=== PATIENT | male | born 1960 | race American Indian/Alaskan Native ===

== ENCOUNTER 2021-10-30 07:14 | Inpatient (IN) | payer OTHER ==
[2021-10-30] MEDS ORDERED: SODIUM CHLORIDE 0.9% 1000 ML 2,000 ML IV ONE (10:46)
--- NOTE | 2021-10-30 11:06 | Emergency Department Report ---
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 Patient stated that he uses insulin but he does not know what doses or what type of insulin he uses. At the time my evaluation patient denies any discomfort. Patient stated that he is supposed to go to [facility] but he was dropped off here. Patient denies fever chill night sweat dizziness blurred vision lightheadedness headache tinnitus ear pain runny nose sore throat loss of taste loss smell chest pain palpitation short of breath cough abdominal pain nausea vomiting diarrhea constipation joint pain muscle pain new rash and heat or cold intolerance. Severity scale (0 -10): 0 - Related Data Allergies Allergy/AdvReac Type Severity Reaction Status Date / Time No Known Allergies Allergy Verified 10/30/21 07:33 ED Review of Systems ROS: Stated complaint: HAS NOT TAKEN DIABETIC MEDS X 4DAYS/HBP Other details as noted in HPI Comment: All other systems reviewed and negative Constitutional: no symptoms reported Eyes: as per HPI ENT: as per HPI Respiratory: no symptoms reported Cardiovascular: as per HPI Endocrine: no symptoms reported Gastrointestinal: as per HPI Genitourinary: as per HPI Musculoskeletal: as per HPI Skin: as per HPI Neurological: as per HPI Psychiatric: as per HPI Hematological/Lymphatic: as per HPI ED Past Medical Hx - Past Medical History Previous Medical History?: Yes Hx Diabetes: Yes Additional medical history: leg edema. measles - Social History Smoking Status: Never Smoker Substance Use Type: None ED Physical Exam - General Limitations: Physical Limitation General appearance: alert, in no apparent distress - Head Head exam: Present: atraumatic, normocephalic, normal inspection - Eye Eye exam: Present: normal appearance, PERRL, EOMI - ENT ENT exam: Present: normal exam, normal orophraynx, mucous membranes moist - Neck Neck exam: Present: normal inspection - Respiratory Respiratory exam: Present: normal lung sounds bilaterally - Cardiovascular Cardiovascular Exam: Present: regular rate - GI/Abdominal GI/Abdominal exam: Present: soft - Extremities Exam Extremities exam: Present: normal inspection, full ROM, normal capillary refill - Back Exam Back exam: Present: normal inspection, full ROM - Neurological Exam Neurological exam: Present: alert, oriented X3, CN II-XII intact - Psychiatric Psychiatric exam: Present: normal affect, normal mood - Skin Skin exam: Present: normal color ED Course Vital Signs 10/30/21 10/30/21 10/30/21 07:29 11:21 11:31 Temperature 98.9 F Pulse Rate 100 H 99 H Respiratory 18 17 Rate Blood Pressure 188/94 Blood Pressure 191/99 [Right] O2 Sat by Pulse 96 100 99 Oximetry 10/30/21 10/30/21 10/30/21 11:45 12:01 12:15 Temperature Pulse Rate 93 H 89 88 Respiratory 15 16 18 Rate Blood Pressure 207/101 207/101 214/114 Blood Pressure [Right] O2 Sat by Pulse 98 98 98 Oximetry 10/30/21 10/30/21 10/30/21 12:31 12:45 13:01 Temperature Pulse Rate 84 104 H 92 H Respiratory 13 25 H 15 Rate Blood Pressure 214/114 202/166 202/166 Blood Pressure [Right] O2 Sat by Pulse 99 100 99 Oximetry 10/30/21 10/30/21 10/30/21 13:15 13:31 13:45 Temperature Pulse Rate 83 80 82 Respiratory 18 14 11 L Rate Blood Pressure 202/166 183/100 192/107 Blood Pressure [Right] O2 Sat by Pulse 97 98 100 Oximetry 10/30/21 10/30/21 10/30/21 14:01 14:15 14:31 Temperature Pulse Rate 98 H 82 Respiratory 17 12 Rate Blood Pressure 192/107 170/97 170/97 Blood Pressure [Right] O2 Sat by Pulse 97 100 100 Oximetry - Reevaluation(s) Reevaluation #1: 10/30/21 14:[address] NICHOLS WHO KINDLY ACCEPTED THE PATIENT. ED Medical Decision Making - Lab Data Result diagrams: 10/30/21 10:54 10/30/21 13:37 Critical care attestation.: If time is entered above; I have spent that time in minutes in the direct care of this critically ill patient, excluding procedure time. ED Disposition Clinical Impression: DKA (diabetic ketoacidosis), Elevated troponin Disposition: ADMITTED INPATIENT Is pt being admited?: Yes Does the pt Need Aspirin: No Condition: Stable Instructions: Diabetic Ketoacidosis (ED) Time of Disposition: 14:58
--- NOTE | 2021-10-30 11:44 | XRay Report ---
CHEST 1 VIEW 10/30/2021 11:08 AM INDICATION / CLINICAL INFORMATION: SOB. COMPARISON: None available. FINDINGS: SUPPORT DEVICES: None. HEART / MEDIASTINUM: No significant abnormality. LUNGS / PLEURA: No significant pulmonary or pleural abnormality. No pneumothorax. ADDITIONAL FINDINGS: No significant additional findings. IMPRESSION: 1. No acute findings. Signer Name: Ankit Monaco MD Signed: 10/30/2021 11:39 AM Workstation Name: [id number] ([facility])[id number]
[2021-10-30 11:51] LABS: Hematocrit 35.3 % (35.5-45.6); Hemoglobin 11.5 gm/dl (11.8-15.2); Mean Corpuscular HGB Conc 32 % (32-34); Mean Corpuscular Volume 81 fl (84-94); Platelet Count 121 K/mm3 (140-440); Red Blood Count 4.35 M/mm3 (3.65-5.03); Red Cell Distribution Width 15.5 % (13.2-15.2)
[2021-10-30 12:19] LABS: Albumin 3.3 g/dL (3.9-5); Calcium 8.8 mg/dL (8.4-10.2)
[2021-10-30 12:21] LABS: Color,Urine Straw (Yellow)
[2021-10-30 12:30] LABS: Chol/HDL Ratio 3.2 %
[2021-10-30] MEDS ORDERED: INSULIN REGULAR, HUMAN 100 UNITS/1 ML IV ONE (12:59)
[2021-10-30 14:50] LABS: Calcium 8.3 mg/dL (8.4-10.2)
[2021-10-30] MEDS ORDERED: ONDANSETRON 4 MG/2 ML INJ IV PRN (17:06)
[2021-10-30] MEDS ORDERED: METOCLOPRAMIDE 10 MG/2 ML INJ IV PRN (17:06)
[2021-10-30] MEDS ORDERED: ACETAMINOPHEN 325 MG TAB PO PRN (17:06)
[2021-10-30] MEDS ORDERED: MORPHINE 2 MG/1 ML INJ IV PRN (17:06)
[2021-10-30] MEDS ORDERED: INSULIN LISPRO 100 UNIT/ML SUB-Q ONE (18:00)
[2021-10-31] MEDS ORDERED: INSULIN LISPRO 100 UNIT/ML SUB-Q ONE (00:47)
[2021-10-31] MEDS: hydrALAZINE 20 MG/1 ML INJ IV PRN ×4 (00:49→23:55)
[2021-10-31] MEDS: SODIUM CHLORIDE 0.9% 1000 ML 1,000 ML IV SCH (01:00)
[2021-10-31 05:37] LABS: Basophils % (Auto) 0.3 % (0.0-1.8); Eosinophils # (Auto) 0.2 K/mm3 (0.0-0.4); Eosinophils % (Auto) 3.3 % (0.0-4.3); Hematocrit 36.5 % (35.5-45.6); Hemoglobin 11.4 gm/dl (11.8-15.2); Lymphocytes # (Auto) 1.5 K/mm3 (1.2-5.4); Lymphocytes % (Auto) 24.5 % (13.4-35.0); Mean Corpuscular HGB Conc 31 % (32-34); Mean Corpuscular Volume 81 fl (84-94); Monocytes # (Auto) 0.7 K/mm3 (0.0-0.8); Monocytes % (Auto) 11.1 % (0.0-7.3); Platelet Count 117 K/mm3 (140-440); Red Blood Count 4.53 M/mm3 (3.65-5.03); Red Cell Distribution Width 15.7 % (13.2-15.2)
[2021-10-31 05:58] LABS: Calcium 8.7 mg/dL (8.4-10.2)
[2021-10-31] MEDS: INSULIN LISPRO 100 UNIT/ML SUB-Q SCH ×4 (06:21→23:08)
--- NOTE | 2021-10-31 09:04 | History and Physical Report ---
History of Present Illness Date of examination: 10/30/21 Date of admission: 10/30/21 17:06 Chief complaint: High blood glucose levels and generalized weakness for 1 week History of present illness: 61-year-old legally blind male with history of insulin-dependent diabetes and hypertension, noncompliant with his insulin because of social issues comes in for increasing generalized weakness. In the emergency room patient was found to have high blood glucose levels of around 5 and 80. Patient being admitted for management of his uncontrolled diabetes and hyperosmolar nonketotic state. No fever or chills. Patient is slightly hypotensive. - Past Medical History --Previous Medical History?: Yes --Diabetes: Yes --Additional medical history: leg edema. measles -past surgical history --unavailable - Social History --Smoking Status: Never Smoker --Substance Use Type: None -Family history --Htn -Review of Systems --ROS: Constitutional generalized weakness HEENT no sore throat no post nasal drip no diplopia Neck no neck stiffness no lymph gland enlargement Chest and lungs no shortness of breath cough or wheezing CVS no chest pain no diaphoresis no palpitations GI no nausea no vomiting no diarrhea Genitourinary system polyuria Musculoskeletal system no muscle pains no joint pains [employer] no syncope no seizures Skin no rash no itching Psychiatric no depression no homicidal or suicidal tendencies Hematologic no lymphedema or bruising Endocrine no polydipsia no polyuria no cold intolerance no heat intolerance Medications and Allergies Allergies Allergy/AdvReac Type Severity Reaction Status Date / Time No Known Allergies Allergy Verified 10/30/21 07:33 Active Meds: Active Medications Acetaminophen (Acetaminophen 325 Mg Tab) 650 mg PO Q4H PRN PRN Reason: Pain MILD(1-3)/Fever >100.5/WILLS Famotidine (Famotidine 20 Mg Tab) 20 mg PO BID LOLY Last Admin: 10/31/21 00:00 Dose: 20 mg Heparin Sodium (Porcine) (Heparin 5,000 Unit/1 Ml Vial) 5,000 unit SUB-Q Q12HR LOLY Last Admin: 10/31/21 00:00 Dose: 5,000 unit Hydralazine HCl (Hydralazine 20 Mg/1 Ml Inj) 10 mg IV Q6HR PRN PRN Reason: Hypertension Last Admin: 10/31/21 06:22 Dose: 10 mg Sodium Chloride (Nacl 0.9% 1000 Ml) 1,000 mls @ 125 mls/hr IV DIRECT [facility] Last Admin: 10/31/21 01:00 Dose: 125 mls/hr Insulin Human Lispro (Insulin Lispro 100 Unit/Ml) 0 unit SUB-Q Q6HR [facility]; Protocol Last Admin: 10/31/21 06:21 Dose: 4 unit Metoclopramide HCl (Metoclopramide 10 Mg/2 Ml Inj) 10 mg IV Q6H PRN PRN Reason: Nausea And Vomiting Morphine Sulfate (Morphine 2 Mg/1 Ml Inj) 2 mg IV Q4H PRN PRN Reason: Pain, Moderate (4-6) Ondansetron HCl (Ondansetron 4 Mg/2 Ml Inj) 4 mg IV Q8H PRN PRN Reason: Nausea And Vomiting Oxycodone/Acetaminophen (Oxycodone /Acetaminophen 5-325mg Tab) 1 tab PO Q6H PRN PRN Reason: Pain, Moderate (4-6) Sodium Chloride (Sodium Chloride 0.9% 10 Ml Flush Syringe) 10 ml IV BID [facility] Last Admin: 10/31/21 00:00 Dose: 10 ml Sodium Chloride (Sodium Chloride 0.9% 10 Ml Flush Syringe) 10 ml IV PRN PRN PRN Reason: LINE FLUSH Exam - Constitutional Vitals: Temp Pulse Resp BP Pulse Ox 97.7 F 97 H 18 195/100 99 10/30/21 23:00 10/31/21 06:22 10/30/21 23:00 10/31/21 06:22 10/30/21 23:00 General appearance: Present: no acute distress, well-nourished - EENT Eyes: Present: PERRL ENT: hearing intact, clear oral mucosa - Neck Neck: Present: supple, normal ROM - Respiratory Respiratory effort: normal Respiratory: bilateral: CTA - Cardiovascular Heart rate: 78 Rhythm: regular Heart Sounds: Present: S1 & S2. Absent: rub, click - Extremities Extremities: no ischemia, pulses intact, pulses symmetrical, No edema Peripheral Pulses: within normal limits - Abdominal General gastrointestinal: Present: soft, non-tender, non-distended, normal bowel sounds Male genitourinary: Present: normal - Integumentary Integumentary: Present: clear, warm, dry - Musculoskeletal Musculoskeletal: gait normal, strength equal bilaterally - Psychiatric Psychiatric: appropriate mood/affect, intact judgment & insight - Neurologic Neurologic: CNII-XII intact, moves all extremities HEART Score - HEART Score Troponin: Troponin T 0.049 ng/mL (0.00-0.029) H 10/30/21 13:37 Results - Labs CBC & Chem 7: 10/31/21 04:00 10/31/21 04:00 Labs: Laboratory Last Values WBC 6.0 K/mm3 (4.5-11.0) 10/31/21 04:00 RBC 4.53 M/mm3 (3.65-5.03) 10/31/21 04:00 Hgb 11.4 gm/dl (11.8-15.2) L 10/31/21 04:00 Hct 36.5 % (35.5-45.6) 10/31/21 04:00 MCV 81 fl (84-94) L 10/31/21 04:00 MCH 25 pg (28-32) L 10/31/21 04:00 MCHC 31 % (32-34) L 10/31/21 04:00 RDW 15.7 % (13.2-15.2) H 10/31/21 04:00 Plt Count 117 K/mm3 (140-440) L 10/31/21 04:00 Lymph % (Auto) 24.5 % (13.4-35.0) 10/31/21 04:00 [place] % (Auto) 11.1 % (0.0-7.3) H 10/31/21 04:00 Eos % (Auto) 3.3 % (0.0-4.3) 10/31/21 04:00 Baso % (Auto) 0.3 % (0.0-1.8) 10/31/21 04:00 Lymph # (Auto) 1.5 K/mm3 (1.2-5.4) 10/31/21 04:00 [place] # (Auto) 0.7 K/mm3 (0.0-0.8) 10/31/21 04:00 Eos # (Auto) 0.2 K/mm3 (0.0-0.4) 10/31/21 04:00 Baso # (Auto) 0.0 K/mm3 (0.0-0.1) 10/31/21 04:00 Seg Neutrophils % 60.8 % (40.0-70.0) 10/31/21 04:00 Seg Neutrophils # 3.7 K/mm3 (1.8-7.7) 10/31/21 04:00 Sodium 140 mmol/L (137-145) 10/31/21 04:00 Potassium 4.1 mmol/L (3.6-5.0) 10/31/21 04:00 Chloride 108.9 mmol/L (98-107) H 10/31/21 04:00 Carbon Dioxide 23 mmol/L (22-30) 10/31/21 04:00 Anion Gap 12 mmol/L 10/31/21 04:00 BUN 26 mg/dL (9-20) H 10/31/21 04:00 Creatinine 1.6 mg/dL (0.8-1.3) H 10/31/21 04:00 Estimated GFR 53 ml/min 10/31/21 04:00 BUN/Creatinine Ratio 16 % 10/31/21 04:00 Glucose 307 mg/dL (75-100) H 10/31/21 04:00 POC Glucose 270 mg/dL (70-105) H 10/31/21 05:56 Hemoglobin A1c 8.7 % (4-6) H 10/31/21 05:15 Ketones Quantitative Cancelled 10/30/21 10:54 Ketones Quantitative Small (Negative) 10/30/21 10:54 Lactic Acid 1.10 mmol/L (0.7-2.0) 10/30/21 10:54 Calcium 8.7 mg/dL (8.4-10.2) 10/31/21 04:00 Magnesium 2.10 mg/dL (1.7-2.3) 10/30/21 10:54 Total Bilirubin 0.20 mg/dL (0.1-1.2) 10/31/21 04:00 AST 19 units/L (5-40) 10/31/21 04:00 ALT 21 units/L (7-56) 10/31/21 04:00 Alkaline Phosphatase 99 units/L (35-129) 10/31/21 04:00 Troponin T 0.049 ng/mL (0.00-0.029) H 10/30/21 13:37 Total Protein 5.5 g/dL (6.3-8.2) L 10/31/21 04:00 Albumin 3.0 g/dL (3.9-5) L 10/31/21 04:00 Albumin/Globulin Ratio 1.2 % 10/31/21 04:00 Triglycerides 173 mg/dL (2-149) H 10/30/21 10:54 Cholesterol 189 mg/dL (50-199) 10/30/21 10:54 LDL Cholesterol Direct 110 mg/dL (50-130) 10/30/21 10:54 HDL Cholesterol 59 mg/dL (40-59) 10/30/21 10:54 Cholesterol/HDL Ratio 3.20 % 10/30/21 10:54 Lipase 21 units/L (13-60) 10/30/21 10:54 Urine Color Straw (Yellow) 10/30/21 11:45 Urine Turbidity Clear (Clear) 10/30/21 11:45 Specific [place] (Man) 1.010 (1.003-1.030) 10/30/21 11:45 Ur Protein (Man) 3+ mg/dL (Negative) 10/30/21 11:45 Ur Ketones (Man) 5 (Negative) 10/30/21 11:45 Ur Reducing Substances Not Reportable 10/30/21 11:45 Urine Bilirubin (Man) Negative (Negative) 10/30/21 11:45 Urine WBC (Auto) 2.0 /HPF (0.0-6.0) 10/30/21 11:45 Urine RBC (Auto) 2.0 /HPF (0.0-6.0) 10/30/21 11:45 U Epithel Cells (Auto) < 1.0 /HPF (0-13.0) 10/30/21 11:45 Urine RBC (Manual) 1+ (Negative) 10/30/21 11:45 Microbiology: Microbiology 10/30/21 10:54 Peripheral/Venous Blood Culture - Preliminary Culture in Progress 10/30/21 10:54 Peripheral/Venous Blood Culture - Preliminary Culture in Progress Dobson/IV: Voiding Method Condom Catheter Assessment and Plan Advance Directives: Yes (Full code) VTE prophylaxis?: Chemical Plan of care discussed with patient/family: Yes - Patient Problems (1) Hyperosmolar non-ketotic state in patient with type 2 diabetes mellitus Current Visit: Yes Status: Acute Plan to address problem: No metabolic acidosis Every 4 Accu-Cheks and high-dose sliding scale coverage Long-acting insulin initiated IV fluids Diet education Patient was discharged with long-acting insulin and short acting insulin protocols Check hemoglobin A1c (2) JOHNNY (acute kidney injury) Current Visit: Yes Status: Acute Plan to address problem: Prerenal Vasomotor nephropathy IV fluids for now (3) Hypertension Current Visit: Yes Status: Chronic Qualifiers: Hypertension type: primary hypertension Qualified Code(s): I10 - Essential (primary) hypertension Plan to address problem: Continue antihypertensives and adjust medications (4) DVT prophylaxis Current Visit: Yes Status: Acute Plan to address problem: on heparin and GI prophylaxis (5) Advance care planning Current Visit: Yes Status: Acute Plan to address problem: Disease education conducted, care plan discussed, diagnosis discussed and prognosis discussed. Patient acknowledges care plan. +30 minutes. Patient is full code.
[2021-10-31] MEDS: FAMOTIDINE 20 MG TAB PO SCH ×3 (10:56→21:58)
[2021-10-31] MEDS: HEPARIN 5,000 UNIT/1 ML VIAL SUB-Q SCH ×3 (15:59→21:58)
[2021-11-01] MEDS: SODIUM CHLORIDE 0.9% 1000 ML 1,000 ML IV SCH (06:39)
[2021-11-01] MEDS: INSULIN LISPRO 100 UNIT/ML SUB-Q SCH ×3 (06:45→17:17)
[2021-11-01] MEDS: FAMOTIDINE 20 MG TAB PO SCH ×2 (09:04→21:50)
[2021-11-01] MEDS: HEPARIN 5,000 UNIT/1 ML VIAL SUB-Q SCH ×2 (09:10→21:50)
--- NOTE | 2021-11-01 10:32 | Progress Note ---
Assessment and Plan - Patient Problems (1) Hyperosmolar non-ketotic state in patient with type 2 diabetes mellitus Current Visit: Yes Status: Acute Plan to address problem: No metabolic acidosis Every 4 Accu-Cheks and high-dose sliding scale coverage Long-acting insulin initiated IV fluids Diet education Patient was discharged with long-acting insulin and short acting insulin protocols Check hemoglobin A1c (2) JOHNNY (acute kidney injury) Current Visit: Yes Status: Acute Plan to address problem: Prerenal Vasomotor nephropathy IV fluids for now (3) Hypertension Current Visit: Yes Status: Chronic Qualifiers: Hypertension type: primary hypertension Qualified Code(s): I10 - Essential (primary) hypertension Plan to address problem: Continue antihypertensives and adjust medications (4) DVT prophylaxis Current Visit: Yes Status: Acute Plan to address problem: on heparin and GI prophylaxis (5) Advance care planning Current Visit: Yes Status: Acute Plan to address problem: Disease education conducted, care plan discussed, diagnosis discussed and prognosis discussed. Patient acknowledges care plan. +30 minutes. Patient is full code. Subjective Date of service: 10/31/21 Principal diagnosis: Hyperosmolar nonketotic state and diabetes Interval history: 61-year-old legally blind male with history of insulin-dependent diabetes and hypertension, noncompliant with his insulin because of social issues comes in for increasing generalized weakness. In the emergency room patient was found to have high blood glucose levels of around 5 and 80. Patient being admitted for management of his uncontrolled diabetes and hyperosmolar nonketotic state. No fever or chills. Patient is slightly hypotensive. 10/31/2021 Patient still feels very weak Has generalized weakness Blood glucose levels improved Objective - Constitutional Vitals: Vital Signs - 12hr 10/31/21 11/01/21 11/01/21 22:56 05:17 05:24 Temperature 98.7 F 98.4 F 98.4 F Pulse Rate 95 H 104 H Respiratory 20 20 18 Rate Blood Pressure 168/88 Blood Pressure 167/86 [Right] O2 Sat by Pulse 98 96 Oximetry General appearance: Present: no acute distress, well-nourished - EENT Eyes: PERRL, EOM intact ENT: hearing intact, clear oral mucosa Ears: bilateral: normal - Neck Neck: supple, normal ROM - Respiratory Respiratory effort: normal Respiratory: bilateral: CTA - Breasts Breasts: normal - Cardiovascular Heart rate: 78 Rhythm: regular Heart Sounds: Present: S1 & S2. Absent: gallop, rub Extremities: pulses intact, No edema, normal color, Full ROM - Gastrointestinal General gastrointestinal: Present: soft, non-tender, non-distended, normal bowel sounds - Genitourinary Male genitourinary: normal - Integumentary Integumentary: clear, warm, dry - Musculoskeletal Musculoskeletal: 1, strength equal bilaterally - Neurologic Neurologic: moves all extremities - Psychiatric Psychiatric: memory intact, appropriate mood/affect, intact judgment & insight - Allied health notes Allied health notes reviewed: nursing, case management - Labs CBC & Chem 7: 11/02/21 05:35 11/02/21 05:35 Labs: Abnormal lab results 10/31/21 10/31/21 10/31/21 Range/Units 12:22 16:15 23:05 POC Glucose 317 H 360 H 231 H (70-105) mg/dL 11/01/21 Range/Units 06:41 POC Glucose 182 H (70-105) mg/dL HEART Score - HEART Score Troponin: Troponin T 0.049 ng/mL (0.00-0.029) H 10/30/21 13:37
--- NOTE | 2021-11-01 17:54 | Progress Note ---
Assessment and Plan - Patient Problems (1) Hyperosmolar non-ketotic state in patient with type 2 diabetes mellitus Current Visit: Yes Status: Acute Plan to address problem: No metabolic acidosis Every 4 Accu-Cheks and high-dose sliding scale coverage Long-acting insulin initiated IV fluids Diet education Patient was discharged with long-acting insulin and short acting insulin protocols Check hemoglobin A1c (2) JOHNNY (acute kidney injury) Current Visit: Yes Status: Acute Plan to address problem: Prerenal Vasomotor nephropathy IV fluids for now (3) Hypertension Current Visit: Yes Status: Chronic Qualifiers: Hypertension type: primary hypertension Qualified Code(s): I10 - Essential (primary) hypertension Plan to address problem: Continue antihypertensives and adjust medications (4) DVT prophylaxis Current Visit: Yes Status: Acute Plan to address problem: on heparin and GI prophylaxis (5) Advance care planning Current Visit: Yes Status: Acute Plan to address problem: Disease education conducted, care plan discussed, diagnosis discussed and prognosis discussed. Patient acknowledges care plan. +30 minutes. Patient is full code. Subjective Date of service: 11/01/21 Principal diagnosis: Hyperosmolar nonketotic state and diabetes Interval history: 61-year-old legally blind male with history of insulin-dependent diabetes and hypertension, noncompliant with his insulin because of social issues comes in for increasing generalized weakness. In the emergency room patient was found to have high blood glucose levels of around 5 and 80. Patient being admitted for management of his uncontrolled diabetes and hyperosmolar nonketotic state. No fever or chills. Patient is slightly hypotensive. 10/31/2021 Patient still feels very weak Has generalized weakness Blood glucose levels improved 11/01/2021 Blood glucose levels are high Insulin adjusted Lantus added to morning regimen Objective - Constitutional Vitals: Vital Signs - 12hr 11/01/21 10:00 O2 Sat by Pulse 98 Oximetry General appearance: Present: no acute distress, well-nourished - EENT Eyes: PERRL, EOM intact ENT: hearing intact, clear oral mucosa Ears: bilateral: normal - Neck Neck: supple, normal ROM - Respiratory Respiratory effort: normal Respiratory: bilateral: CTA - Breasts Breasts: normal - Cardiovascular Heart rate: 78 Rhythm: regular Heart Sounds: Present: S1 & S2. Absent: gallop, rub Extremities: pulses intact, No edema, normal color, Full ROM - Gastrointestinal General gastrointestinal: Present: soft, non-tender, non-distended, normal bowel sounds - Genitourinary Male genitourinary: normal - Integumentary Integumentary: clear, warm, dry - Musculoskeletal Musculoskeletal: 1, strength equal bilaterally - Neurologic Neurologic: moves all extremities - Psychiatric Psychiatric: memory intact, appropriate mood/affect, intact judgment & insight - Labs CBC & Chem 7: 11/02/21 05:35 11/02/21 05:35 Labs: Abnormal lab results 10/31/21 11/01/21 11/01/21 Range/Units 23:05 06:41 11:33 POC Glucose 231 H 182 H 331 H (70-105) mg/dL HEART Score - HEART Score Troponin: Troponin T 0.049 ng/mL (0.00-0.029) H 10/30/21 13:37
[2021-11-01] MEDS: INSULIN GLARGINE 100 UNITS/ML SUB-Q SCH (21:51)
[2021-11-02] MEDS: INSULIN LISPRO 100 UNIT/ML SUB-Q SCH ×3 (00:37→14:06)
[2021-11-02 06:19] LABS: Hematocrit 33.6 % (35.5-45.6); Mean Corpuscular HGB Conc 33 % (32-34); Mean Corpuscular Volume 80 fl (84-94); Platelet Count 106 K/mm3 (140-440); Red Blood Count 4.21 M/mm3 (3.65-5.03); Red Cell Distribution Width 15.4 % (13.2-15.2)
[2021-11-02 06:43] LABS: Albumin 2.7 g/dL (3.9-5); Calcium 8.8 mg/dL (8.4-10.2)
[2021-11-02 07:49] LABS: Basophils % (Manual) 0 % (0.0-1.8); Eosinophils % (Manual) 0 % (0.0-4.3); Platelet Estimate Consistent w Auto; RBC Morphology Normal; Total Cells Counted 100
[2021-11-02] MEDS: HEPARIN 5,000 UNIT/1 ML VIAL SUB-Q SCH ×2 (09:41→22:00)
[2021-11-02] MEDS: FAMOTIDINE 20 MG TAB PO SCH ×2 (09:41→22:00)
[2021-11-02] MEDS: INSULIN GLARGINE 100 UNITS/ML SUB-Q SCH (21:59)
[2021-11-03] MEDS: INSULIN LISPRO 100 UNIT/ML SUB-Q SCH ×5 (00:24→18:05)
[2021-11-03] MEDS: SODIUM CHLORIDE 0.9% 1000 ML 1,000 ML IV SCH (06:20)
--- NOTE | 2021-11-03 07:57 | Progress Note ---
Assessment and Plan - Patient Problems (1) Hyperosmolar non-ketotic state in patient with type 2 diabetes mellitus Current Visit: Yes Status: Acute Plan to address problem: Hemoglobin A1c 8.7 Lantus is twice daily Patient to be discharged on Lantus twice daily Diabetes education (2) JOHNNY (acute kidney injury) Current Visit: Yes Status: Acute Plan to address problem: Prerenal Vasomotor nephropathy IV fluids for now (3) Hypertension Current Visit: Yes Status: Chronic Qualifiers: Hypertension type: primary hypertension Qualified Code(s): I10 - Essential (primary) hypertension Plan to address problem: Continue antihypertensives and adjust medications (4) Malnutrition Current Visit: Yes Status: Chronic Qualifiers: Protein-calorie malnutrition severity: moderate Plan to address problem: Dietary supplements for now (5) Advance care planning Current Visit: Yes Status: Acute Plan to address problem: Disease education conducted, care plan discussed, diagnosis discussed and pr ognosis discussed. Patient acknowledges care plan. +30 minutes. Patient is full code. (6) DVT prophylaxis Current Visit: Yes Status: Acute Plan to address problem: on heparin and GI prophylaxis Subjective Date of service: 11/02/21 Principal diagnosis: Hyperosmolar nonketotic state and diabetes Interval history: 61-year-old legally blind male with history of insulin-dependent diabetes and hypertension, noncompliant with his insulin because of social issues comes in for increasing generalized weakness. In the emergency room patient was found to have high blood glucose levels of around 5 and 80. Patient being admitted for management of his uncontrolled diabetes and hyperosmolar nonketotic state. No fever or chills. Patient is slightly hypotensive. 10/31/2021 Patient still feels very weak Has generalized weakness Blood glucose levels improved 11/01/2021 Blood glucose levels are high Insulin adjusted Lantus added to morning regimen 11/02/2021 Symptomatically better Blood glucose levels in the mid 200s Objective - Constitutional Vitals: Vital Signs - 12hr 11/02/21 11/02/21 11/03/21 21:01 22:00 04:58 Temperature 97.5 F L 98.4 F Pulse Rate 107 H 85 Respiratory 18 18 Rate Blood Pressure 157/93 190/94 O2 Sat by Pulse 100 96 98 Oximetry General appearance: Present: no acute distress, well-nourished - EENT Eyes: PERRL, EOM intact ENT: hearing intact, clear oral mucosa Ears: bilateral: normal - Neck Neck: supple, normal ROM - Respiratory Respiratory effort: normal Respiratory: bilateral: CTA - Breasts Breasts: normal - Cardiovascular Heart rate: 78 Rhythm: regular Heart Sounds: Present: S1 & S2. Absent: gallop, rub Extremities: pulses intact, No edema, normal color, Full ROM - Gastrointestinal General gastrointestinal: Present: soft, non-tender, non-distended, normal bowel sounds - Genitourinary Male genitourinary: normal - Integumentary Integumentary: clear, warm, dry - Musculoskeletal Musculoskeletal: 1, strength equal bilaterally - Neurologic Neurologic: moves all extremities - Psychiatric Psychiatric: memory intact, appropriate mood/affect, intact judgment & insight - Labs CBC & Chem 7: 11/02/21 05:35 11/02/21 05:35 Labs: Abnormal lab results 11/02/21 11/02/21 11/02/21 Range/Units 11:40 16:31 21:58 POC Glucose 158 H 259 H 228 H (70-105) mg/dL 11/02/21 Range/Units 23:24 POC Glucose 278 H (70-105) mg/dL HEART Score - HEART Score Troponin: Troponin T 0.049 ng/mL (0.00-0.029) H 10/30/21 13:37
--- NOTE | 2021-11-03 09:09 | Event Note ---
Date: 11/02/21 Patient will discharge tomorrow Lantus twice daily--15 units in a.m. and 25 units in p.m. Add metformin Case management to look into the prison placement
[2021-11-03] MEDS ORDERED: INSULIN GLARGINE 100 UNITS/ML SUB-Q SCH (09:30)
[2021-11-03] MEDS: FAMOTIDINE 20 MG TAB PO SCH ×2 (10:27→21:21)
[2021-11-03] MEDS: HEPARIN 5,000 UNIT/1 ML VIAL SUB-Q SCH ×2 (10:28→21:21)
[2021-11-03] MEDS: hydrALAZINE 20 MG/1 ML INJ IV PRN ×2 (10:28→18:13)
[2021-11-03] MEDS: oxyCODONE /ACETAMINOPHEN 5-325MG TAB PO PRN (10:29)
[2021-11-03 13:26] LABS: Calcium 8.2 mg/dL (8.4-10.2)
[2021-11-03] MEDS ORDERED: SODIUM CHLORIDE 0.9% 100 ML IVPB IV SCH (19:00)
[2021-11-03] MEDS: GABAPENTIN 300 MG CAP PO SCH (21:26)
[2021-11-03] MEDS: TIMOLOL 0.5% OPHTH SOLN 5 ML OU SCH (21:56)
[2021-11-04] MEDS: INSULIN LISPRO 100 UNIT/ML SUB-Q SCH ×5 (00:08→23:29)
[2021-11-04] MEDS ORDERED: TORSEMIDE 100 MG TAB PO SCH (06:00)
[2021-11-04] MEDS: hydrALAZINE 20 MG/1 ML INJ IV PRN ×2 (06:09→23:28)
[2021-11-04] MEDS: SODIUM CHLORIDE 0.9% 1000 ML 1,000 ML IV SCH (06:25)
[2021-11-04] MEDS: TIMOLOL 0.5% OPHTH SOLN 5 ML OU SCH ×2 (10:04→22:55)
[2021-11-04] MEDS: ASPIRIN 81 MG TAB CHEW PO SCH (10:04)
[2021-11-04] MEDS: HEPARIN 5,000 UNIT/1 ML VIAL SUB-Q SCH ×2 (10:07→22:54)
[2021-11-04] MEDS: GABAPENTIN 300 MG CAP PO SCH ×2 (10:07→22:54)
[2021-11-04] MEDS ORDERED: METOCLOPRAMIDE 10 MG/2 ML INJ IV PRN (11:00)
--- NOTE | 2021-11-04 11:47 | Discharge Summary ---
Providers - Providers Date of Admission: 10/30/21 17:06 Date of discharge: 11/04/21 Attending physician: CHARIS ALEX 10/30/21 10:55 Consult to Case Management [CONS] Routine Services Needed at Discharge: Mill Supervisor Notified:: HOMELSS Additional Physician Instructions: hOMELESS Primary care physician: ZINA BUCK Hospitalization Reason for admission: Hyperosmolar nonketotic syndrome Condition: Stable Exam - Constitutional Vitals: Temp Pulse Resp BP Pulse Ox 98.5 F 100 H 20 135/70 100 11/04/21 05:32 11/04/21 10:07 11/04/21 05:32 11/04/21 10:07 11/04/21 05:32 Plan Follow up with: ZINA BUCK MD [Primary Care Provider] - 7 Days
--- NOTE | 2021-11-04 11:51 | Progress Note ---
Assessment and Plan Assessment and plan: 61-year-old legally blind male with history of insulin-dependent diabetes and hypertension, noncompliant with his insulin because of social issues comes in for increasing generalized weakness. In the emergency room patient was found to have high blood glucose levels of around 580. Patient being admitted for management of his uncontrolled diabetes and hyperosmolar nonketotic state. Diabetes mellitus type 2, Hyperosmolar nonketotic state Acute kidney injury. Etiology probably secondary to vasomotor nephropathy Protein calorie malnutrition Hospital course 10/31/2021 Patient still feels very weak Has generalized weakness Blood glucose levels improved 11/01/2021 Blood glucose levels are high Insulin adjusted Lantus added to morning regimen 11/02/2021 Symptomatically better Blood glucose levels in the mid 200s Patient will discharge tomorrow Lantus twice daily--15 units in a.m. and 25 units in p.m. Add metformin Case management to look into the residential placement 11/04/2021. Patient's creatinine stabilized at 1.8 and likely secondary to CKD. Will check renal ultrasound to confirm and rule out obstruction. History Interval history: No new issues overnight Hospitalist Physical - Constitutional Vitals: Temp Pulse Resp BP Pulse Ox 98.5 F 100 H 20 135/70 100 11/04/21 05:32 11/04/21 10:07 11/04/21 05:32 11/04/21 10:07 11/04/21 05:32 General appearance: Present: no acute distress, well-nourished - EENT Eyes: Present: PERRL, EOM intact ENT: hearing intact, clear oral mucosa, dentition normal - Neck Neck: Present: supple, normal ROM - Respiratory Respiratory effort: normal Respiratory: bilateral: CTA - Cardiovascular Rhythm: regular Heart Sounds: Present: S1 & S2. Absent: gallop, rub - Extremities Extremities: no ischemia, No edema, Full ROM - Abdominal General gastrointestinal: soft, non-tender, non-distended, normal bowel sounds - Integumentary Integumentary: Present: clear, warm, dry - Neurologic Neurologic: CNII-XII intact, moves all extremities HEART Score - HEART Score Troponin: Troponin T 0.049 ng/mL (0.00-0.029) H 10/30/21 13:37 Results - Labs CBC & Chem 7: 11/02/21 05:35 11/03/21 12:11 Labs: Laboratory Last Values WBC 5.8 K/mm3 (4.5-11.0) 11/02/21 05:35 RBC 4.21 M/mm3 (3.65-5.03) 11/02/21 05:35 Hgb 11.0 gm/dl (11.8-15.2) L 11/02/21 05:35 Hct 33.6 % (35.5-45.6) L 11/02/21 05:35 MCV 80 fl (84-94) L 11/02/21 05:35 MCH 26 pg (28-32) L 11/02/21 05:35 MCHC 33 % (32-34) 11/02/21 05:35 RDW 15.4 % (13.2-15.2) H 11/02/21 05:35 Plt Count 106 K/mm3 (140-440) L 11/02/21 05:35 Lymph % (Auto) 24.5 % (13.4-35.0) 10/31/21 04:00 [place] % (Auto) [employer] 11/02/21 05:35 Eos % (Auto) 3.3 % (0.0-4.3) 10/31/21 04:00 Baso % (Auto) 0.3 % (0.0-1.8) 10/31/21 04:00 Lymph # (Auto) 1.5 K/mm3 (1.2-5.4) 10/31/21 04:00 [place] # (Auto) 0.7 K/mm3 (0.0-0.8) 10/31/21 04:00 Eos # (Auto) 0.2 K/mm3 (0.0-0.4) 10/31/21 04:00 Baso # (Auto) 0.0 K/mm3 (0.0-0.1) 10/31/21 04:00 Add Manual Diff Complete 11/02/21 05:35 Total Counted 100 11/02/21 05:35 Seg Neutrophils % 60.8 % (40.0-70.0) 10/31/21 04:00 Seg Neuts % (Manual) 66.0 % (40.0-70.0) 11/02/21 05:35 Band Neutrophils % 0 % 11/02/21 05:35 Lymphocytes % (Manual) 26.0 % (13.4-35.0) 11/02/21 05:35 Reactive Lymphs % (Man) 0 % 11/02/21 05:35 Monocytes % (Manual) 8.0 % (0.0-7.3) H 11/02/21 05:35 Eosinophils % (Manual) 0 % (0.0-4.3) 11/02/21 05:35 Basophils % (Manual) 0 % (0.0-1.8) 11/02/21 05:35 Metamyelocytes % 0 % 11/02/21 05:35 Myelocytes % 0 % 11/02/21 05:35 Promyelocytes % 0 % 11/02/21 05:35 Blast Cells % 0 % 11/02/21 05:35 Nucleated RBC % Not Reportable 11/02/21 05:35 Seg Neutrophils # 3.7 K/mm3 (1.8-7.7) 10/31/21 04:00 Seg Neutrophils # Man 3.8 K/mm3 (1.8-7.7) 11/02/21 05:35 Band Neutrophils # 0.0 K/mm3 11/02/21 05:35 Lymphocytes # (Manual) 1.5 K/mm3 (1.2-5.4) 11/02/21 05:35 Abs React Lymphs (Man) 0.0 K/mm3 11/02/21 05:35 Monocytes # (Manual) 0.5 K/mm3 (0.0-0.8) 11/02/21 05:35 Eosinophils # (Manual) 0.0 K/mm3 (0.0-0.4) 11/02/21 05:35 Basophils # (Manual) 0.0 K/mm3 (0.0-0.1) 11/02/21 05:35 Metamyelocytes # 0.0 K/mm3 11/02/21 05:35 Myelocytes # 0.0 K/mm3 11/02/21 05:35 Promyelocytes # 0.0 K/mm3 11/02/21 05:35 Blast Cells # 0.0 K/mm3 11/02/21 05:35 WBC Morphology Not Reportable 11/02/21 05:35 Hypersegmented Neuts Not Reportable 11/02/21 05:35 Hyposegmented Neuts Not Reportable 11/02/21 05:35 Hypogranular Neuts Not Reportable 11/02/21 05:35 Smudge Cells Not Reportable 11/02/21 05:35 Toxic Granulation Not Reportable 11/02/21 05:35 Toxic Vacuolation Not Reportable 11/02/21 05:35 Dohle Bodies Not Reportable 11/02/21 05:35 Pelger-Huet Anomaly Not Reportable 11/02/21 05:35 Jarvis Rods Not Reportable 11/02/21 05:35 Platelet Estimate Consistent w auto 11/02/21 05:35 Clumped Platelets Not Reportable 11/02/21 05:35 Plt Clumps, EDTA Not Reportable 11/02/21 05:35 Large Platelets Not Reportable 11/02/21 05:35 Giant Platelets Not Reportable 11/02/21 05:35 Platelet Satelliting Not Reportable 11/02/21 05:35 Plt Morphology Comment Not Reportable 11/02/21 05:35 RBC Morphology Normal 11/02/21 05:35 Dimorphic RBCs Not Reportable 11/02/21 05:35 Polychromasia Not Reportable 11/02/21 05:35 Hypochromasia Not Reportable 11/02/21 05:35 Poikilocytosis Not Reportable 11/02/21 05:35 Anisocytosis Not Reportable 11/02/21 05:35 Microcytosis Not Reportable 11/02/21 05:35 Macrocytosis Not Reportable 11/02/21 05:35 Spherocytes Not Reportable 11/02/21 05:35 Pappenheimer Bodies Not Reportable 11/02/21 05:35 Sickle Cells Not Reportable 11/02/21 05:35 Target Cells Not Reportable 11/02/21 05:35 Tear Drop Cells Not Reportable 11/02/21 05:35 Ovalocytes Not Reportable 11/02/21 05:35 Helmet Cells Not Reportable 11/02/21 05:35 [place] Bodies Not Reportable 11/02/21 05:35 [place] Rings Not Reportable 11/02/21 05:35 Karla Cells Not Reportable 11/02/21 05:35 Bite Cells Not Reportable 11/02/21 05:35 Crenated Cell Not Reportable 11/02/21 05:35 Elliptocytes Not Reportable 11/02/21 05:35 Acanthocytes (Spur) Not Reportable 11/02/21 05:35 Rouleaux Not Reportable 11/02/21 05:35 Hemoglobin C Crystals Not Reportable 11/02/21 05:35 Schistocytes Not Reportable 11/02/21 05:35 Malaria parasites Not Reportable 11/02/21 05:35 [place] Bodies Not Reportable 11/02/21 05:35 Hem Pathologist Commnt No 11/02/21 05:35 Sodium 140 mmol/L (137-145) 11/03/21 12:11 Potassium 4.3 mmol/L (3.6-5.0) 11/03/21 12:11 Chloride 109.0 mmol/L (98-107) H 11/03/21 12:11 Carbon Dioxide 23 mmol/L (22-30) 11/03/21 12:11 Anion Gap 12 mmol/L 11/03/21 12:11 BUN 22 mg/dL (9-20) H 11/03/21 12:11 Creatinine 1.8 mg/dL (0.8-1.3) H 11/03/21 12:11 Estimated GFR 46 ml/min 11/03/21 12:11 BUN/Creatinine Ratio 12 % 11/03/21 12:11 Glucose 177 mg/dL (75-100) H 11/03/21 12:11 POC Glucose 92 mg/dL (70-105) 11/04/21 06:21 Hemoglobin A1c 8.7 % (4-6) H 10/31/21 05:15 Ketones Quantitative Cancelled 10/30/21 10:54 Ketones Quantitative Small (Negative) 10/30/21 10:54 Lactic Acid 1.10 mmol/L (0.7-2.0) 10/30/21 10:54 Calcium 8.2 mg/dL (8.4-10.2) L 11/03/21 12:11 Magnesium 2.10 mg/dL (1.7-2.3) 10/30/21 10:54 Total Bilirubin 0.20 mg/dL (0.1-1.2) 11/02/21 05:35 AST 23 units/L (5-40) 11/02/21 05:35 ALT 22 units/L (7-56) 11/02/21 05:35 Alkaline Phosphatase 86 units/L (35-129) 11/02/21 05:35 Troponin T 0.049 ng/mL (0.00-0.029) H 10/30/21 13:37 Total Protein 5.3 g/dL (6.3-8.2) L 11/02/21 05:35 Albumin 2.7 g/dL (3.9-5) L 11/02/21 05:35 Albumin/Globulin Ratio 1.0 % 11/02/21 05:35 Triglycerides 173 mg/dL (2-149) H 10/30/21 10:54 Cholesterol 189 mg/dL (50-199) 10/30/21 10:54 LDL Cholesterol Direct 110 mg/dL (50-130) 10/30/21 10:54 HDL Cholesterol 59 mg/dL (40-59) 10/30/21 10:54 Cholesterol/HDL Ratio 3.20 % 10/30/21 10:54 Lipase 21 units/L (13-60) 10/30/21 10:54 Urine Color Straw (Yellow) 10/30/21 11:45 Urine Turbidity Clear (Clear) 10/30/21 11:45 Specific [place] (Man) 1.010 (1.003-1.030) 10/30/21 11:45 Ur Protein (Man) 3+ mg/dL (Negative) 10/30/21 11:45 Ur Ketones (Man) 5 (Negative) 10/30/21 11:45 Ur Reducing Substances Not Reportable 10/30/21 11:45 Urine Bilirubin (Man) Negative (Negative) 10/30/21 11:45 Urine WBC (Auto) 2.0 /HPF (0.0-6.0) 10/30/21 11:45 Urine RBC (Auto) 2.0 /HPF (0.0-6.0) 10/30/21 11:45 U Epithel Cells (Auto) < 1.0 /HPF (0-13.0) 10/30/21 11:45 Urine RBC (Manual) 1+ (Negative) 10/30/21 11:45 Microbiology: Microbiology 10/30/21 10:54 Peripheral/Venous Blood Culture - Preliminary NO GROWTH AFTER 4 DAYS 10/30/21 10:54 Peripheral/Venous Blood Culture - Preliminary NO GROWTH AFTER 4 DAYS Dobson/IV: Voiding Method Condom Catheter Active Medications - Current Medications Current Medications: Generic Name Dose Route Start Last Admin Trade Name Freq PRN Reason Stop Dose Admin Acetaminophen 650 mg 10/30/21 17:06 11/01/21 22:21 Acetaminophen 325 Mg Tab PO 650 mg Q4H PRN Administration Pain MILD(1-3)/Fever >100.5/WILLS Aspirin 81 mg 11/04/21 10:00 11/04/21 10:04 Aspirin 81 Mg Tab Chew PO 81 mg QDAY LOLY Administration Famotidine 20 mg 11/04/21 11:00 Famotidine 20 Mg Tab PO DAILY LOLY Gabapentin 300 mg 11/03/21 22:00 11/04/21 10:07 Gabapentin 300 Mg Cap PO 300 mg BID LOLY Administration Heparin Sodium (Porcine) 5,000 unit 10/30/21 22:00 11/04/21 10:07 Heparin 5,000 Unit/1 Ml Vial SUB-Q 5,000 unit Q12HR LOLY Administration Hydralazine HCl 10 mg 10/31/21 00:19 11/04/21 06:09 Hydralazine 20 Mg/1 Ml Inj IV 10 mg Q6HR PRN Administration SBP greater than 160 Sodium Chloride 1,000 mls @ 75 mls/hr 11/04/21 06:15 11/04/21 06:25 Nacl 0.9% 1000 Ml IV 75 mls/hr DIRECT LOLY Administration Insulin Glargine 15 units 11/04/21 10:00 Insulin Glargine 100 Units/Ml SUB-Q DAILY [facility] Insulin Human Lispro 0 unit 10/31/21 06:00 11/04/21 06:23 Insulin Lispro 100 Unit/Ml SUB-Q Not Given Q6HR [facility] Protocol Labetalol HCl 200 mg 11/03/21 22:00 11/04/21 10:07 Labetalol 200 Mg Tab PO 200 mg BID LOLY Administration Metoclopramide HCl 5 mg 11/04/21 11:00 Metoclopramide 10 Mg/2 Ml Inj IV Q6H PRN Nausea And Vomiting Morphine Sulfate 2 mg 10/30/21 17:06 Morphine 2 Mg/1 Ml Inj IV Q4H PRN Pain, Moderate (4-6) Ondansetron HCl 4 mg 10/30/21 17:06 Ondansetron 4 Mg/2 Ml Inj IV Q8H PRN Nausea And Vomiting Oxycodone/Acetaminophen 1 tab 10/30/21 17:06 11/03/21 10:29 Oxycodone /Acetaminophen 5-325mg Tab PO 1 tab Q6H PRN Administration Pain, Moderate (4-6) Sodium Chloride 10 ml 10/30/21 22:00 11/04/21 10:09 Sodium Chloride 0.9% 10 Ml Flush Syringe IV 10 ml BID LOLY Administration Sodium Chloride 10 ml 10/30/21 17:06 Sodium Chloride 0.9% 10 Ml Flush Syringe IV PRN PRN LINE FLUSH Timolol Maleate 1 drops 11/03/21 22:00 11/04/21 10:04 Timolol 0.5% Ophth Soln 5 Ml OU 1 drops BID LOLY Administration Torsemide 100 mg 11/04/21 06:00 11/04/21 05:28 Torsemide 100 Mg Tab PO 100 mg DAILY@0600 LOLY Administration
[2021-11-04] MEDS: INSULIN GLARGINE 100 UNITS/ML SUB-Q SCH (12:00)
[2021-11-04] MEDS: FAMOTIDINE 20 MG TAB PO SCH ×2 (13:01→23:31)
--- NOTE | 2021-11-04 15:01 | Ultrasound Report ---
ULTRASOUND RENAL INDICATION / CLINICAL INFORMATION: JOHNNY. COMPARISON: CT abdomen pelvis 09/25/2014. FINDINGS: RIGHT KIDNEY: Length = 10.0 cm. - Echogenicity: Normal. - Parenchymal Thickness: Normal. - Hydronephrosis: None. - Cyst / Mass: None. - Stones: None seen. LEFT KIDNEY: Length = 11.0 cm. - Echogenicity: Normal. - Parenchymal Thickness: Normal. - Hydronephrosis: None. - Cyst / Mass: None. - Stones: None seen. URINARY BLADDER: No significant abnormality. FREE FLUID: None. ADDITIONAL FINDINGS: None. IMPRESSION: 1. No acute sonographic abnormality of the kidneys. Scribed by: Nelida Shetty RDMS, GLENDY, VISHAL Scribed: 11/04/2021 1:35 PM I have reviewed the images, agree with this report, and edited this report as needed. Signer Name: Alex Corrigan MD Signed: 11/04/2021 2:56 PM Workstation Name: [id number]
[2021-11-04 18:18] LABS: Calcium 8.2 mg/dL (8.4-10.2)
[2021-11-05] MEDS: INSULIN LISPRO 100 UNIT/ML SUB-Q SCH ×4 (06:10→23:38)
[2021-11-05 07:17] LABS: Basophils % (Auto) 0.3 % (0.0-1.8); Eosinophils # (Auto) 0.2 K/mm3 (0.0-0.4); Eosinophils % (Auto) 5.2 % (0.0-4.3); Hematocrit 35.1 % (35.5-45.6); Lymphocytes # (Auto) 1.4 K/mm3 (1.2-5.4); Lymphocytes % (Auto) 30.9 % (13.4-35.0); Mean Corpuscular HGB Conc 31 % (32-34); Mean Corpuscular Volume 81 fl (84-94); Monocytes # (Auto) 0.6 K/mm3 (0.0-0.8); Monocytes % (Auto) 12.2 % (0.0-7.3); Platelet Count 116 K/mm3 (140-440); Red Blood Count 4.35 M/mm3 (3.65-5.03); Red Cell Distribution Width 15.6 % (13.2-15.2)
[2021-11-05 07:32] LABS: Calcium 8.3 mg/dL (8.4-10.2)
[2021-11-05] MEDS: SODIUM CHLORIDE 0.9% 1000 ML 1,000 ML IV SCH ×2 (10:21→21:51)
[2021-11-05] MEDS: HEPARIN 5,000 UNIT/1 ML VIAL SUB-Q SCH ×2 (10:22→21:27)
[2021-11-05] MEDS: FAMOTIDINE 20 MG TAB PO SCH (10:22)
[2021-11-05] MEDS: ASPIRIN 81 MG TAB CHEW PO SCH (10:22)
[2021-11-05] MEDS: GABAPENTIN 300 MG CAP PO SCH ×2 (10:24→21:29)
[2021-11-05] MEDS: INSULIN GLARGINE 100 UNITS/ML SUB-Q SCH (10:26)
[2021-11-05] MEDS: TIMOLOL 0.5% OPHTH SOLN 5 ML OU SCH ×2 (10:28→21:29)
--- NOTE | 2021-11-05 10:31 | Consultation ---
History of Present Illness - Reason for Consult Consult date: 11/05/21 acute renal failure, chronic renal failure - History of Present Illness The patient is a 61 YO old male with history notable for DM-2, HTN, legally blind, CKD, noncompliant with Insulin because of social issues and homelessness who presented to [facility] ED with generalized weakness. Currently he denies any complaint. In the ED patient was found to have high blood glucose level 590. Patient being admitted for management of his uncontrolled diabetes and hyperosmolar nonketotic state. Labs notable for elevated BUN and creat level. Nephrology consulted for further evaluation and treatment. Past History Past Medical History: other (See HPI.) Medications and Allergies Allergies Allergy/AdvReac Type Severity Reaction Status Date / Time No Known Allergies Allergy Verified 10/30/21 07:33 Home Medications Medication Instructions Recorded Confirmed Last Taken Type Aspirin [Aspirin BABY CHEW TAB] 81 mg PO QDAY #30 tab.chew 11/05/21 Unknown Rx Famotidine [Pepcid] 20 mg PO DAILY tablet 11/05/21 Unknown Rx Gabapentin 300 mg PO BID #60 capsule 11/05/21 Unknown Rx Insulin Glargine [Lantus VIAL] 15 units SUB-Q DAILY 30 Days units 11/05/21 Unknown Rx labetaloL [Labetalol 200mg TAB] 200 mg PO BID #60 tablet 11/05/21 Unknown Rx Active Meds: Active Medications Acetaminophen (Acetaminophen 325 Mg Tab) 650 mg PO Q4H PRN PRN Reason: Pain MILD(1-3)/Fever >100.5/WILLS Last Admin: 11/01/21 22:21 Dose: 650 mg Aspirin (Aspirin 81 Mg Tab Chew) 81 mg PO QDAY [facility] Last Admin: 11/05/21 10:22 Dose: 81 mg Famotidine (Famotidine 20 Mg Tab) 20 mg PO DAILY [facility] Last Admin: 11/05/21 10:22 Dose: 20 mg Gabapentin (Gabapentin 300 Mg Cap) 300 mg PO BID [facility] Last Admin: 11/05/21 10:24 Dose: 300 mg Heparin Sodium (Porcine) (Heparin 5,000 Unit/1 Ml Vial) 5,000 unit SUB-Q Q12HR [facility] Last Admin: 11/05/21 10:22 Dose: 5,000 unit Hydralazine HCl (Hydralazine 20 Mg/1 Ml Inj) 10 mg IV Q6HR PRN PRN Reason: SBP greater than 160 Last Admin: 11/04/21 23:28 Dose: 10 mg Sodium Chloride (Nacl 0.9% 1000 Ml) 1,000 mls @ 75 mls/hr IV DIRECT [facility] Last Admin: 11/05/21 10:21 Dose: 75 mls/hr Insulin Glargine (Insulin Glargine 100 Units/Ml) 15 units SUB-Q DAILY [facility] Last Admin: 11/05/21 10:26 Dose: 15 units Insulin Human Lispro (Insulin Lispro 100 Unit/Ml) 0 unit SUB-Q Q6HR [facility]; Protocol Last Admin: 11/05/21 06:10 Dose: 2 unit Labetalol HCl (Labetalol 200 Mg Tab) 200 mg PO BID [facility] Last Admin: 11/05/21 10:24 Dose: 200 mg Metoclopramide HCl (Metoclopramide 10 Mg/2 Ml Inj) 5 mg IV Q6H PRN PRN Reason: Nausea And Vomiting Morphine Sulfate (Morphine 2 Mg/1 Ml Inj) 2 mg IV Q4H PRN PRN Reason: Pain, Moderate (4-6) Ondansetron HCl (Ondansetron 4 Mg/2 Ml Inj) 4 mg IV Q8H PRN PRN Reason: Nausea And Vomiting Oxycodone/Acetaminophen (Oxycodone /Acetaminophen 5-325mg Tab) 1 tab PO Q6H PRN PRN Reason: Pain, Moderate (4-6) Last Admin: 11/03/21 10:29 Dose: 1 tab Sodium Chloride (Sodium Chloride 0.9% 10 Ml Flush Syringe) 10 ml IV BID [facility] Last Admin: 11/05/21 10:27 Dose: 10 ml Sodium Chloride (Sodium Chloride 0.9% 10 Ml Flush Syringe) 10 ml IV PRN PRN PRN Reason: LINE FLUSH Timolol Maleate (Timolol 0.5% Ophth Soln 5 Ml) 1 drops OU BID [facility] Last Admin: 11/05/21 10:28 Dose: Not Given Review of Systems All systems: negative Exam - Vital Signs Vital signs: Vital Signs Temp Pulse Resp BP Pulse Ox 98.9 F 100 H 18 191/99 96 10/30/21 07:29 10/30/21 07:29 10/30/21 07:29 10/30/21 07:29 10/30/21 07:29 Results - Lab Results 09/05/22 05:36 11/10/21 05:36 Most recent lab results Calcium 8.3 mg/dL (8.4-10.2) L 11/05/21 06:13 Magnesium 2.10 mg/dL (1.7-2.3) 10/30/21 10:54 Assessment and Plan 1. 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 Associated proteinuria. Renal US negative for hydro/stone. Monitor renal function. Creatinine level fluctuates. Avoid nephrotoxic agents. Meds dosage based on GFR. 2. FEN: Replete lytes as needed. Monitor lytes and volume status. 3. Uncontrolled DM: Meds per primary. Monitor. 4. HTN: Monitor. 5. Microcytic anemia, POA: Trend. Will sign off. Follow with me in 1-2 weeks after d/c. Subjective: Patient was seen and examined at the bedside. Examination: General appearance: well-developed, appears stated age, no distress HEENT: atraumatic, no icterus Neck: trachea midline Respiratory: ctab Heart: S1S2, regular, no murmur Abdomen: soft, bowel sounds heard, NT Integumentary: no obvious rash Neurologic: AO, decreased eye sight, able to move extremities Ext: no edema
[2021-11-05] MEDS: oxyCODONE /ACETAMINOPHEN 5-325MG TAB PO PRN (10:47)
--- NOTE | 2021-11-05 11:31 | Discharge Summary ---
Providers - Providers Date of Admission: 10/30/21 17:06 Date of discharge: 11/05/21 Attending physician: CHARIS ALEX 10/30/21 10:55 Consult to Case Management [CONS] Routine Services Needed at Discharge: Application Development Director Notified:: HANNAH Additional Physician Instructions: hOMELESS 11/05/21 08:47 Consult to Physician [CONS] Routine Comment: Consulting Provider: MARCIO MARTINEZ Physician Instructions: Reason For Exam: JOHNNY Primary care physician: ZINA BUCK Hospitalization Reason for admission: HHNKS Condition: Stable Hospital course: 61-year-old legally blind male with history of insulin-dependent diabetes and hypertension, noncompliant with his insulin because of social issues comes in for increasing generalized weakness. In the emergency room, patient was found to have high blood glucose levels of around 580. Patient being admitted for management of his uncontrolled diabetes and hyperosmolar nonketotic state. The patient also had other complications with acute kidney injury with elevation of creatinine. However, patient had a renal ultrasound that revealed no medical renal disease. Nephrology was consulted and felt that the patient likely has underlying chronic kidney disease with a baseline creatinine of 2.0. Nephrology feels that patient can discharge home. Patient was previously at a personal residential which he will discharge back. Dedicated discharge time 32 minutes Disposition: 01 HOME / SELF CARE / HOMELESS Final Discharge Diagnosis (Prints w/discharge instructions): HHNKS, acute kidney injury, hypertension, Core Measure Documentation - Palliative Care Palliative Care/ Comfort Measures: Not Applicable - Core Measures Any of the following diagnoses?: none Exam - Constitutional Vitals: Temp Pulse Resp BP Pulse Ox 98.5 F 83 20 151/76 97 11/05/21 05:16 11/05/21 05:16 11/05/21 05:16 11/05/21 05:16 11/05/21 05:16 General appearance: Present: no acute distress, well-nourished - EENT Eyes: Present: PERRL ENT: hearing intact, clear oral mucosa - Neck Neck: Present: supple, normal ROM - Respiratory Respiratory effort: normal Respiratory: bilateral: CTA - Cardiovascular Heart Sounds: Present: S1 & S2. Absent: rub, click - Extremities Extremities: pulses symmetrical, No edema Peripheral Pulses: within normal limits - Abdominal General gastrointestinal: Present: soft, non-tender, non-distended, normal bowel sounds Male genitourinary: Present: normal - Integumentary Integumentary: Present: clear, warm, dry - Musculoskeletal Musculoskeletal: gait normal, strength equal bilaterally - Psychiatric Psychiatric: appropriate mood/affect, intact judgment & insight - Neurologic Neurologic: CNII-XII intact, moves all extremities Plan Activity: advance as tolerated Weight Bearing Status: Weight Bear as Tolerated Diet: diabetic Follow up with: ZINA BUCK MD [Primary Care Provider] - 7 Days Prescriptions: Aspirin [Aspirin BABY CHEW TAB] 81 mg PO QDAY #30 tab.chew Gabapentin 300 mg PO BID #60 capsule labetaloL [Labetalol 200mg TAB] 200 mg PO BID #60 tablet Insulin Glargine [Lantus VIAL] 15 units SUB-Q DAILY 30 Days units
[2021-11-06 00:11] LABS: Creatinine,Urine 91.8 mg/dL (0.1-20.0)
[2021-11-06 00:57] LABS: Protein/Creatinine Ratio,Urine 3.51
[2021-11-06] MEDS: INSULIN LISPRO 100 UNIT/ML SUB-Q SCH ×4 (06:29→21:51)
[2021-11-06] MEDS: hydrALAZINE 20 MG/1 ML INJ IV PRN (06:48)
[2021-11-06] MEDS: ASPIRIN 81 MG TAB CHEW PO SCH (09:39)
[2021-11-06] MEDS: FAMOTIDINE 20 MG TAB PO SCH (09:39)
[2021-11-06] MEDS: GABAPENTIN 300 MG CAP PO SCH ×2 (09:39→21:48)
[2021-11-06] MEDS: INSULIN GLARGINE 100 UNITS/ML SUB-Q SCH (09:40)
[2021-11-06] MEDS: HEPARIN 5,000 UNIT/1 ML VIAL SUB-Q SCH ×2 (09:40→21:49)
[2021-11-06] MEDS: TIMOLOL 0.5% OPHTH SOLN 5 ML OU SCH ×2 (10:05→21:52)
[2021-11-06 15:15] LABS: Calcium 8.5 mg/dL (8.4-10.2)
[2021-11-06] MEDS: SODIUM CHLORIDE 0.9% 1000 ML 1,000 ML IV SCH (16:36)
[2021-11-07] MEDS: INSULIN LISPRO 100 UNIT/ML SUB-Q SCH ×4 (08:02→23:19)
--- NOTE | 2021-11-07 08:45 | Progress Note ---
Assessment and Plan - Patient Problems (1) Hyperosmolar non-ketotic state in patient with type 2 diabetes mellitus Current Visit: Yes Status: Acute Plan to address problem: Hemoglobin A1c 8.7 Lantus is twice daily Patient to be discharged on Lantus twice daily Diabetes education (2) JOHNNY (acute kidney injury) Current Visit: Yes Status: Acute Plan to address problem: Prerenal Vasomotor nephropathy IV fluids for now (3) Hypertension Current Visit: Yes Status: Chronic Qualifiers: Hypertension type: primary hypertension Qualified Code(s): I10 - Essential (primary) hypertension Plan to address problem: Continue antihypertensives and adjust medications (4) Malnutrition Current Visit: Yes Status: Chronic Qualifiers: Protein-calorie malnutrition severity: moderate Plan to address problem: Dietary supplements for now (5) Advance care planning Current Visit: Yes Status: Acute Plan to address problem: Disease education conducted, care plan discussed, diagnosis discussed and pr ognosis discussed. Patient acknowledges care plan. +30 minutes. Patient is full code. (6) DVT prophylaxis Current Visit: Yes Status: Acute Plan to address problem: on heparin and GI prophylaxis Subjective Date of service: 11/06/21 Principal diagnosis: Hyperosmolar nonketotic state and diabetes Interval history: 61-year-old legally blind male with history of insulin-dependent diabetes and hypertension, noncompliant with his insulin because of social issues comes in for increasing generalized weakness. In the emergency room patient was found to have high blood glucose levels of around 5 and 80. Patient being admitted for management of his uncontrolled diabetes and hyperosmolar nonketotic state. No fever or chills. Patient is slightly hypotensive. 10/31/2021 Patient still feels very weak Has generalized weakness Blood glucose levels improved 11/01/2021 Blood glucose levels are high Insulin adjusted Lantus added to morning regimen 11/02/2021 Symptomatically better Blood glucose levels in the mid 200s 11/06/21 Placment issues Objective - Constitutional Vitals: Vital Signs - 12hr 11/06/21 11/06/21 11/07/21 21:27 22:00 04:13 Temperature 98.4 F 97.4 F L Pulse Rate 65 71 Respiratory 18 16 Rate Blood Pressure 170/71 149/67 O2 Sat by Pulse 100 100 100 Oximetry General appearance: Present: no acute distress, well-nourished - EENT Eyes: PERRL, EOM intact ENT: hearing intact, clear oral mucosa Ears: bilateral: normal - Neck Neck: supple, normal ROM - Respiratory Respiratory effort: normal Respiratory: bilateral: CTA - Breasts Breasts: normal - Cardiovascular Heart rate: 78 Rhythm: regular Heart Sounds: Present: S1 & S2. Absent: gallop, rub Extremities: pulses intact, No edema, normal color, Full ROM - Gastrointestinal General gastrointestinal: Present: soft, non-tender, non-distended, normal bowel sounds - Genitourinary Male genitourinary: normal - Integumentary Integumentary: clear, warm, dry - Musculoskeletal Musculoskeletal: 1, strength equal bilaterally - Neurologic Neurologic: moves all extremities - Psychiatric Psychiatric: memory intact, appropriate mood/affect, intact judgment & insight - Labs CBC & Chem 7: 11/05/21 06:13 11/06/21 14:20 Labs: Abnormal lab results 11/06/21 11/06/21 11/06/21 Range/Units 06:23 11:43 14:20 Potassium 5.3 H D (3.6-5.0) mmol/L Chloride 107.1 H (98-107) mmol/L BUN 28 H (9-20) mg/dL Creatinine 1.9 H (0.8-1.3) mg/dL Glucose 230 H (75-100) mg/dL POC Glucose 177 H 207 H (70-105) mg/dL 11/06/21 11/06/21 Range/Units 16:04 21:11 Potassium (3.6-5.0) mmol/L Chloride (98-107) mmol/L BUN (9-20) mg/dL Creatinine (0.8-1.3) mg/dL Glucose (75-100) mg/dL POC Glucose 234 H 290 H (70-105) mg/dL HEART Score - HEART Score Troponin: Troponin T 0.049 ng/mL (0.00-0.029) H 10/30/21 13:37
--- NOTE | 2021-11-07 09:50 | Progress Note ---
Assessment and Plan Assessment and plan: 61-year-old legally blind male with history of insulin-dependent diabetes and hypertension, noncompliant with his insulin because of social issues comes in for increasing generalized weakness. In the emergency room patient was found to have high blood glucose levels of around 580. Patient being admitted for management of his uncontrolled diabetes and hyperosmolar nonketotic state. Diabetes mellitus type 2, Hyperosmolar nonketotic state Acute kidney injury. Etiology probably secondary to vasomotor nephropathy Protein calorie malnutrition Hospital course 10/31/2021 Patient still feels very weak Has generalized weakness Blood glucose levels improved 11/01/2021 Blood glucose levels are high Insulin adjusted Lantus added to morning regimen 11/02/2021 Symptomatically better Blood glucose levels in the mid 200s Patient will discharge tomorrow Lantus twice daily--15 units in a.m. and 25 units in p.m. Add metformin Case management to look into the fpc placement 11/04/2021. Patient's creatinine stabilized at 1.8 and likely secondary to CKD. Will check renal ultrasound to confirm and rule out obstruction. 11/07/2021. Awaiting placement. History Interval history: No new issues overnight Hospitalist Physical - Constitutional Vitals: Temp Pulse Resp BP Pulse Ox 97.4 F L 71 16 149/67 100 11/07/21 04:13 11/07/21 04:13 11/07/21 04:13 11/07/21 04:13 11/07/21 04:13 General appearance: Present: no acute distress, well-nourished - EENT Eyes: Present: PERRL, EOM intact ENT: hearing intact, clear oral mucosa, dentition normal - Neck Neck: Present: supple, normal ROM - Respiratory Respiratory effort: normal Respiratory: bilateral: CTA - Cardiovascular Rhythm: regular Heart Sounds: Present: S1 & S2. Absent: gallop, rub - Extremities Extremities: no ischemia, No edema, Full ROM - Abdominal General gastrointestinal: soft, non-tender, non-distended, normal bowel sounds - Integumentary Integumentary: Present: clear, warm, dry - Neurologic Neurologic: CNII-XII intact, moves all extremities HEART Score - HEART Score Troponin: Troponin T 0.049 ng/mL (0.00-0.029) H 10/30/21 13:37 Results - Labs CBC & Chem 7: 11/05/21 06:13 11/06/21 14:20 Labs: Laboratory Last Values WBC 4.7 K/mm3 (4.5-11.0) 11/05/21 06:13 RBC 4.35 M/mm3 (3.65-5.03) 11/05/21 06:13 Hgb 11.0 gm/dl (11.8-15.2) L 11/05/21 06:13 Hct 35.1 % (35.5-45.6) L 11/05/21 06:13 MCV 81 fl (84-94) L 11/05/21 06:13 MCH 25 pg (28-32) L 11/05/21 06:13 MCHC 31 % (32-34) L 11/05/21 06:13 RDW 15.6 % (13.2-15.2) H 11/05/21 06:13 Plt Count 116 K/mm3 (140-440) L 11/05/21 06:13 Lymph % (Auto) 30.9 % (13.4-35.0) 11/05/21 06:13 [place] % (Auto) 12.2 % (0.0-7.3) H 11/05/21 06:13 Eos % (Auto) 5.2 % (0.0-4.3) H 11/05/21 06:13 Baso % (Auto) 0.3 % (0.0-1.8) 11/05/21 06:13 Lymph # (Auto) 1.4 K/mm3 (1.2-5.4) 11/05/21 06:13 [place] # (Auto) 0.6 K/mm3 (0.0-0.8) 11/05/21 06:13 Eos # (Auto) 0.2 K/mm3 (0.0-0.4) 11/05/21 06:13 Baso # (Auto) 0.0 K/mm3 (0.0-0.1) 11/05/21 06:13 Add Manual Diff Complete 11/02/21 05:35 Total Counted 100 11/02/21 05:35 Seg Neutrophils % 51.4 % (40.0-70.0) 11/05/21 06:13 Seg Neuts % (Manual) 66.0 % (40.0-70.0) 11/02/21 05:35 Band Neutrophils % 0 % 11/02/21 05:35 Lymphocytes % (Manual) 26.0 % (13.4-35.0) 11/02/21 05:35 Reactive Lymphs % (Man) 0 % 11/02/21 05:35 Monocytes % (Manual) 8.0 % (0.0-7.3) H 11/02/21 05:35 Eosinophils % (Manual) 0 % (0.0-4.3) 11/02/21 05:35 Basophils % (Manual) 0 % (0.0-1.8) 11/02/21 05:35 Metamyelocytes % 0 % 11/02/21 05:35 Myelocytes % 0 % 11/02/21 05:35 Promyelocytes % 0 % 11/02/21 05:35 Blast Cells % 0 % 11/02/21 05:35 Nucleated RBC % Not Reportable 11/02/21 05:35 Seg Neutrophils # 2.4 K/mm3 (1.8-7.7) 11/05/21 06:13 Seg Neutrophils # Man 3.8 K/mm3 (1.8-7.7) 11/02/21 05:35 Band Neutrophils # 0.0 K/mm3 11/02/21 05:35 Lymphocytes # (Manual) 1.5 K/mm3 (1.2-5.4) 11/02/21 05:35 Abs React Lymphs (Man) 0.0 K/mm3 11/02/21 05:35 Monocytes # (Manual) 0.5 K/mm3 (0.0-0.8) 11/02/21 05:35 Eosinophils # (Manual) 0.0 K/mm3 (0.0-0.4) 11/02/21 05:35 Basophils # (Manual) 0.0 K/mm3 (0.0-0.1) 11/02/21 05:35 Metamyelocytes # 0.0 K/mm3 11/02/21 05:35 Myelocytes # 0.0 K/mm3 11/02/21 05:35 Promyelocytes # 0.0 K/mm3 11/02/21 05:35 Blast Cells # 0.0 K/mm3 11/02/21 05:35 WBC Morphology Not Reportable 11/02/21 05:35 Hypersegmented Neuts Not Reportable 11/02/21 05:35 Hyposegmented Neuts Not Reportable 11/02/21 05:35 Hypogranular Neuts Not Reportable 11/02/21 05:35 Smudge Cells Not Reportable 11/02/21 05:35 Toxic Granulation Not Reportable 11/02/21 05:35 Toxic Vacuolation Not Reportable 11/02/21 05:35 Dohle Bodies Not Reportable 11/02/21 05:35 Pelger-Huet Anomaly Not Reportable 11/02/21 05:35 Jarvis Rods Not Reportable 11/02/21 05:35 Platelet Estimate Consistent w auto 11/02/21 05:35 Clumped Platelets Not Reportable 11/02/21 05:35 Plt Clumps, EDTA Not Reportable 11/02/21 05:35 Large Platelets Not Reportable 11/02/21 05:35 Giant Platelets Not Reportable 11/02/21 05:35 Platelet Satelliting Not Reportable 11/02/21 05:35 Plt Morphology Comment Not Reportable 11/02/21 05:35 RBC Morphology Normal 11/02/21 05:35 Dimorphic RBCs Not Reportable 11/02/21 05:35 Polychromasia Not Reportable 11/02/21 05:35 Hypochromasia Not Reportable 11/02/21 05:35 Poikilocytosis Not Reportable 11/02/21 05:35 Anisocytosis Not Reportable 11/02/21 05:35 Microcytosis Not Reportable 11/02/21 05:35 Macrocytosis Not Reportable 11/02/21 05:35 Spherocytes Not Reportable 11/02/21 05:35 Pappenheimer Bodies Not Reportable 11/02/21 05:35 Sickle Cells Not Reportable 11/02/21 05:35 Target Cells Not Reportable 11/02/21 05:35 Tear Drop Cells Not Reportable 11/02/21 05:35 Ovalocytes Not Reportable 11/02/21 05:35 Helmet Cells Not Reportable 11/02/21 05:35 [place] Bodies Not Reportable 11/02/21 05:35 [place] Rings Not Reportable 11/02/21 05:35 [place] Cells Not Reportable 11/02/21 05:35 Bite Cells Not Reportable 11/02/21 05:35 Crenated Cell Not Reportable 11/02/21 05:35 Elliptocytes Not Reportable 11/02/21 05:35 Acanthocytes (Spur) Not Reportable 11/02/21 05:35 Rouleaux Not Reportable 11/02/21 05:35 Hemoglobin C Crystals Not Reportable 11/02/21 05:35 Schistocytes Not Reportable 11/02/21 05:35 Malaria parasites Not Reportable 11/02/21 05:35 [place] Bodies Not Reportable 11/02/21 05:35 Hem Pathologist Commnt No 11/02/21 05:35 Sodium 140 mmol/L (137-145) 11/06/21 14:20 Potassium 5.3 mmol/L (3.6-5.0) H D 11/06/21 14:20 Chloride 107.1 mmol/L (98-107) H 11/06/21 14:20 Carbon Dioxide 25 mmol/L (22-30) 11/06/21 14:20 Anion Gap 13 mmol/L 11/06/21 14:20 BUN 28 mg/dL (9-20) H 11/06/21 14:20 Creatinine 1.9 mg/dL (0.8-1.3) H 11/06/21 14:20 Estimated GFR 44 ml/min 11/06/21 14:20 BUN/Creatinine Ratio 15 % 11/06/21 14:20 Glucose 230 mg/dL (75-100) H 11/06/21 14:20 POC Glucose 118 mg/dL (70-105) H 11/07/21 07:29 Hemoglobin A1c 8.7 % (4-6) H 10/31/21 05:15 Ketones Quantitative Cancelled 10/30/21 10:54 Ketones Quantitative Small (Negative) 10/30/21 10:54 Lactic Acid 1.10 mmol/L (0.7-2.0) 10/30/21 10:54 Calcium 8.5 mg/dL (8.4-10.2) 11/06/21 14:20 Phosphorus 3.50 mg/dL (2.5-4.5) 11/06/21 14:20 Magnesium 2.10 mg/dL (1.7-2.3) 10/30/21 10:54 Total Bilirubin 0.20 mg/dL (0.1-1.2) 11/02/21 05:35 AST 23 units/L (5-40) 11/02/21 05:35 ALT 22 units/L (7-56) 11/02/21 05:35 Alkaline Phosphatase 86 units/L (35-129) 11/02/21 05:35 Troponin T 0.049 ng/mL (0.00-0.029) H 10/30/21 13:37 Total Protein 5.3 g/dL (6.3-8.2) L 11/02/21 05:35 Albumin 2.7 g/dL (3.9-5) L 11/02/21 05:35 Albumin/Globulin Ratio 1.0 % 11/02/21 05:35 Triglycerides 173 mg/dL (2-149) H 10/30/21 10:54 Cholesterol 189 mg/dL (50-199) 10/30/21 10:54 LDL Cholesterol Direct 110 mg/dL (50-130) 10/30/21 10:54 HDL Cholesterol 59 mg/dL (40-59) 10/30/21 10:54 Cholesterol/HDL Ratio 3.20 % 10/30/21 10:54 Lipase 21 units/L (13-60) 10/30/21 10:54 PTH Intact 78.77 pg/mL (15-65) H 11/05/21 06:03 Urine Color Straw (Yellow) 10/30/21 11:45 Urine Turbidity Clear (Clear) 10/30/21 11:45 Specific [place] (Man) 1.010 (1.003-1.030) 10/30/21 11:45 Ur Protein (Man) 3+ mg/dL (Negative) 10/30/21 11:45 Ur Ketones (Man) 5 (Negative) 10/30/21 11:45 Ur Reducing Substances Not Reportable 10/30/21 11:45 Urine Bilirubin (Man) Negative (Negative) 10/30/21 11:45 Urine WBC (Auto) 2.0 /HPF (0.0-6.0) 10/30/21 11:45 Urine RBC (Auto) 2.0 /HPF (0.0-6.0) 10/30/21 11:45 U Epithel Cells (Auto) < 1.0 /HPF (0-13.0) 10/30/21 11:45 Urine RBC (Manual) 1+ (Negative) 10/30/21 11:45 Urine Creatinine 91.8 mg/dL (0.1-20.0) H 11/05/21 23:45 Protein/Creatinin Ratio 3.51 11/05/21 23:45 Urine Sodium 40 mmol/L 11/05/21 23:45 Urine Total Protein 322 mg/dL (5-11.8) H 11/05/21 23:45 [place]/IV: Voiding Method Condom Catheter Active Medications - Current Medications Current Medications: Generic Name Dose Route Start Last Admin Trade Name Freq PRN Reason Stop Dose Admin Acetaminophen 650 mg 10/30/21 17:06 11/01/21 22:21 Acetaminophen 325 Mg Tab PO 650 mg Q4H PRN Administration Pain MILD(1-3)/Fever >100.5/WILLS Aspirin 81 mg 11/04/21 10:00 11/06/21 09:39 Aspirin 81 Mg Tab Chew PO 81 mg QDAY LOLY Administration Famotidine 20 mg 11/04/21 11:00 11/06/21 09:39 Famotidine 20 Mg Tab PO 20 mg DAILY LOLY Administration Gabapentin 300 mg 11/03/21 22:00 11/06/21 21:48 Gabapentin 300 Mg Cap PO 300 mg BID LOLY Administration Heparin Sodium (Porcine) 5,000 unit 10/30/21 22:00 11/06/21 21:49 Heparin 5,000 Unit/1 Ml Vial SUB-Q 5,000 unit Q12HR LOLY Administration Hydralazine HCl 10 mg 10/31/21 00:19 11/06/21 06:48 Hydralazine 20 Mg/1 Ml Inj IV 10 mg Q6HR PRN Administration SBP greater than 160 Sodium Chloride 1,000 mls @ 75 mls/hr 11/04/21 06:15 11/06/21 16:36 Nacl 0.9% 1000 Ml IV 75 mls/hr DIRECT LOLY Administration Insulin Glargine 15 units 11/04/21 10:00 11/06/21 09:40 Insulin Glargine 100 Units/Ml SUB-Q 15 units DAILY LOLY Administration Insulin Human Lispro 0 unit 11/06/21 22:00 11/07/21 08:02 Insulin Lispro 100 Unit/Ml SUB-Q Not Given ACHS [facility] Protocol Labetalol HCl 200 mg 11/03/21 22:00 11/06/21 21:48 Labetalol 200 Mg Tab PO 200 mg BID LOLY Administration Metoclopramide HCl 5 mg 11/04/21 11:00 Metoclopramide 10 Mg/2 Ml Inj IV Q6H PRN Nausea And Vomiting Morphine Sulfate 2 mg 10/30/21 17:06 Morphine 2 Mg/1 Ml Inj IV Q4H PRN Pain, Moderate (4-6) Ondansetron HCl 4 mg 10/30/21 17:06 Ondansetron 4 Mg/2 Ml Inj IV Q8H PRN Nausea And Vomiting Oxycodone/Acetaminophen 1 tab 10/30/21 17:06 11/05/21 10:47 Oxycodone /Acetaminophen 5-325mg Tab PO 1 tab Q6H PRN Administration Pain, Moderate (4-6) Sodium Chloride 10 ml 10/30/21 22:00 11/06/21 21:52 Sodium Chloride 0.9% 10 Ml Flush Syringe IV 10 ml BID LOLY Administration Sodium Chloride 10 ml 10/30/21 17:06 Sodium Chloride 0.9% 10 Ml Flush Syringe IV PRN PRN LINE FLUSH Timolol Maleate 1 drops 11/03/21 22:00 11/06/21 21:52 Timolol 0.5% Ophth Soln 5 Ml OU 1 drops BID LOLY Administration
[2021-11-07] MEDS: HEPARIN 5,000 UNIT/1 ML VIAL SUB-Q SCH ×2 (10:04→22:16)
[2021-11-07] MEDS: FAMOTIDINE 20 MG TAB PO SCH (10:04)
[2021-11-07] MEDS: GABAPENTIN 300 MG CAP PO SCH ×2 (10:04→22:16)
[2021-11-07] MEDS: ASPIRIN 81 MG TAB CHEW PO SCH (10:04)
[2021-11-07] MEDS: INSULIN GLARGINE 100 UNITS/ML SUB-Q SCH (10:07)
[2021-11-07] MEDS: TIMOLOL 0.5% OPHTH SOLN 5 ML OU SCH ×2 (10:14→22:23)
[2021-11-07 18:26] LABS: Calcium 8.7 mg/dL (8.4-10.2)
[2021-11-08 05:30] LABS: Basophils % (Auto) 0.5 % (0.0-1.8); Eosinophils # (Auto) 0.3 K/mm3 (0.0-0.4); Eosinophils % (Auto) 4.4 % (0.0-4.3); Hematocrit 32.6 % (35.5-45.6); Hemoglobin 10.6 gm/dl (11.8-15.2); Lymphocytes # (Auto) 1.6 K/mm3 (1.2-5.4); Mean Corpuscular HGB Conc 33 % (32-34); Mean Corpuscular Volume 81 fl (84-94); Monocytes # (Auto) 0.7 K/mm3 (0.0-0.8); Monocytes % (Auto) 11.3 % (0.0-7.3); Platelet Count 117 K/mm3 (140-440); Red Blood Count 4.04 M/mm3 (3.65-5.03); Red Cell Distribution Width 15.7 % (13.2-15.2)
[2021-11-08 05:39] LABS: Calcium 8.5 mg/dL (8.4-10.2)
[2021-11-08] MEDS: INSULIN LISPRO 100 UNIT/ML SUB-Q SCH ×4 (08:01→23:06)
--- NOTE | 2021-11-08 09:55 | Progress Note ---
Assessment and Plan Assessment and plan: 61-year-old legally blind male with history of insulin-dependent diabetes and hypertension, noncompliant with his insulin because of social issues comes in for increasing generalized weakness. In the emergency room patient was found to have high blood glucose levels of around 580. Patient being admitted for management of his uncontrolled diabetes and hyperosmolar nonketotic state. Diabetes mellitus type 2, Hyperosmolar nonketotic state Acute kidney injury on CKD. Etiology probably secondary to vasomotor nephropathy Protein calorie malnutrition Hospital course 10/31/2021 Patient still feels very weak Has generalized weakness Blood glucose levels improved 11/01/2021 Blood glucose levels are high Insulin adjusted Lantus added to morning regimen 11/02/2021 Symptomatically better Blood glucose levels in the mid 200s Patient will discharge tomorrow Lantus twice daily--15 units in a.m. and 25 units in p.m. Add metformin Case management to look into the [facility] placement 11/04/2021. Patient's creatinine stabilized at 1.8 and likely secondary to CKD. Will check renal ultrasound to confirm and rule out obstruction. 11/07/2021. Awaiting placement. 11/08/2021. Patient's baseline creatinine is likely at 2.0 with CKD. I discussed case with nephrology. Renal ultrasound was negative. Awaiting placement. History Interval history: No new issues overnight Hospitalist Physical - Constitutional Vitals: Temp Pulse Resp BP Pulse Ox 97.4 F L 74 16 178/91 100 11/07/21 04:13 11/07/21 22:17 11/07/21 04:13 11/07/21 22:17 11/07/21 22:00 General appearance: Present: no acute distress, well-nourished - EENT Eyes: Present: PERRL, EOM intact ENT: hearing intact, clear oral mucosa, dentition normal - Neck Neck: Present: supple, normal ROM - Respiratory Respiratory effort: normal Respiratory: bilateral: CTA - Cardiovascular Rhythm: regular Heart Sounds: Present: S1 & S2. Absent: gallop, rub - Extremities Extremities: no ischemia, No edema, Full ROM - Abdominal General gastrointestinal: soft, non-tender, non-distended, normal bowel sounds - Integumentary Integumentary: Present: clear, warm, dry - Neurologic Neurologic: CNII-XII intact, moves all extremities HEART Score - HEART Score Troponin: Troponin T 0.049 ng/mL (0.00-0.029) H 10/30/21 13:37 Results - Labs CBC & Chem 7: 11/08/21 04:55 11/08/21 04:55 Labs: Laboratory Last Values WBC 6.0 K/mm3 (4.5-11.0) 11/08/21 04:55 RBC 4.04 M/mm3 (3.65-5.03) 11/08/21 04:55 Hgb 10.6 gm/dl (11.8-15.2) L 11/08/21 04:55 Hct 32.6 % (35.5-45.6) L 11/08/21 04:55 MCV 81 fl (84-94) L 11/08/21 04:55 MCH 26 pg (28-32) L 11/08/21 04:55 MCHC 33 % (32-34) 11/08/21 04:55 RDW 15.7 % (13.2-15.2) H 11/08/21 04:55 Plt Count 117 K/mm3 (140-440) L 11/08/21 04:55 Lymph % (Auto) 27.0 % (13.4-35.0) 11/08/21 04:55 [place] % (Auto) 11.3 % (0.0-7.3) H 11/08/21 04:55 Eos % (Auto) 4.4 % (0.0-4.3) H 11/08/21 04:55 Baso % (Auto) 0.5 % (0.0-1.8) 11/08/21 04:55 Lymph # (Auto) 1.6 K/mm3 (1.2-5.4) 11/08/21 04:55 Dare # (Auto) 0.7 K/mm3 (0.0-0.8) 11/08/21 04:55 Eos # (Auto) 0.3 K/mm3 (0.0-0.4) 11/08/21 04:55 Baso # (Auto) 0.0 K/mm3 (0.0-0.1) 11/08/21 04:55 Add Manual Diff Complete 11/02/21 05:35 Total Counted 100 11/02/21 05:35 Seg Neutrophils % 56.8 % (40.0-70.0) 11/08/21 04:55 Seg Neuts % (Manual) 66.0 % (40.0-70.0) 11/02/21 05:35 Band Neutrophils % 0 % 11/02/21 05:35 Lymphocytes % (Manual) 26.0 % (13.4-35.0) 11/02/21 05:35 Reactive Lymphs % (Man) 0 % 11/02/21 05:35 Monocytes % (Manual) 8.0 % (0.0-7.3) H 11/02/21 05:35 Eosinophils % (Manual) 0 % (0.0-4.3) 11/02/21 05:35 Basophils % (Manual) 0 % (0.0-1.8) 11/02/21 05:35 Metamyelocytes % 0 % 11/02/21 05:35 Myelocytes % 0 % 11/02/21 05:35 Promyelocytes % 0 % 11/02/21 05:35 Blast Cells % 0 % 11/02/21 05:35 Nucleated RBC % Not Reportable 11/02/21 05:35 Seg Neutrophils # 3.4 K/mm3 (1.8-7.7) 11/08/21 04:55 Seg Neutrophils # Man 3.8 K/mm3 (1.8-7.7) 11/02/21 05:35 Band Neutrophils # 0.0 K/mm3 11/02/21 05:35 Lymphocytes # (Manual) 1.5 K/mm3 (1.2-5.4) 11/02/21 05:35 Abs React Lymphs (Man) 0.0 K/mm3 11/02/21 05:35 Monocytes # (Manual) 0.5 K/mm3 (0.0-0.8) 11/02/21 05:35 Eosinophils # (Manual) 0.0 K/mm3 (0.0-0.4) 11/02/21 05:35 Basophils # (Manual) 0.0 K/mm3 (0.0-0.1) 11/02/21 05:35 Metamyelocytes # 0.0 K/mm3 11/02/21 05:35 Myelocytes # 0.0 K/mm3 11/02/21 05:35 Promyelocytes # 0.0 K/mm3 11/02/21 05:35 Blast Cells # 0.0 K/mm3 11/02/21 05:35 WBC Morphology Not Reportable 11/02/21 05:35 Hypersegmented Neuts Not Reportable 11/02/21 05:35 Hyposegmented Neuts Not Reportable 11/02/21 05:35 Hypogranular Neuts Not Reportable 11/02/21 05:35 Smudge Cells Not Reportable 11/02/21 05:35 Toxic Granulation Not Reportable 11/02/21 05:35 Toxic Vacuolation Not Reportable 11/02/21 05:35 Dohle Bodies Not Reportable 11/02/21 05:35 Pelger-Huet Anomaly Not Reportable 11/02/21 05:35 Jarvis Rods Not Reportable 11/02/21 05:35 Platelet Estimate Consistent w auto 11/02/21 05:35 Clumped Platelets Not Reportable 11/02/21 05:35 Plt Clumps, EDTA Not Reportable 11/02/21 05:35 Large Platelets Not Reportable 11/02/21 05:35 Giant Platelets Not Reportable 11/02/21 05:35 Platelet Satelliting Not Reportable 11/02/21 05:35 Plt Morphology Comment Not Reportable 11/02/21 05:35 RBC Morphology Normal 11/02/21 05:35 Dimorphic RBCs Not Reportable 11/02/21 05:35 Polychromasia Not Reportable 11/02/21 05:35 Hypochromasia Not Reportable 11/02/21 05:35 Poikilocytosis Not Reportable 11/02/21 05:35 Anisocytosis Not Reportable 11/02/21 05:35 Microcytosis Not Reportable 11/02/21 05:35 Macrocytosis Not Reportable 11/02/21 05:35 Spherocytes Not Reportable 11/02/21 05:35 Pappenheimer Bodies Not Reportable 11/02/21 05:35 Sickle Cells Not Reportable 11/02/21 05:35 Target Cells Not Reportable 11/02/21 05:35 Tear Drop Cells Not Reportable 11/02/21 05:35 Ovalocytes Not Reportable 11/02/21 05:35 Helmet Cells Not Reportable 11/02/21 05:35 [place] Bodies Not Reportable 11/02/21 05:35 [place] Rings Not Reportable 11/02/21 05:35 Karla Cells Not Reportable 11/02/21 05:35 Bite Cells Not Reportable 11/02/21 05:35 Crenated Cell Not Reportable 11/02/21 05:35 Elliptocytes Not Reportable 11/02/21 05:35 Acanthocytes (Spur) Not Reportable 11/02/21 05:35 Rouleaux Not Reportable 11/02/21 05:35 Hemoglobin C Crystals Not Reportable 11/02/21 05:35 Schistocytes Not Reportable 11/02/21 05:35 Malaria parasites Not Reportable 11/02/21 05:35 [place]igo Bodies Not Reportable 11/02/21 05:35 Hem Pathologist Commnt No 11/02/21 05:35 Sodium 143 mmol/L (137-145) 11/08/21 04:55 Potassium 5.3 mmol/L (3.6-5.0) H 11/08/21 04:55 Chloride 111.4 mmol/L (98-107) H 11/08/21 04:55 Carbon Dioxide 24 mmol/L (22-30) 11/08/21 04:55 Anion Gap 13 mmol/L 11/08/21 04:55 BUN 28 mg/dL (9-20) H 11/08/21 04:55 Creatinine 1.8 mg/dL (0.8-1.3) H 11/08/21 04:55 Estimated GFR 46 ml/min 11/08/21 04:55 BUN/Creatinine Ratio 16 % 11/08/21 04:55 Glucose 238 mg/dL (75-100) H 11/08/21 04:55 POC Glucose 277 mg/dL (70-105) H 11/07/21 22:29 Hemoglobin A1c 8.7 % (4-6) H 10/31/21 05:15 Ketones Quantitative Cancelled 10/30/21 10:54 Ketones Quantitative Small (Negative) 10/30/21 10:54 Lactic Acid 1.10 mmol/L (0.7-2.0) 10/30/21 10:54 Calcium 8.5 mg/dL (8.4-10.2) 11/08/21 04:55 Phosphorus 3.50 mg/dL (2.5-4.5) 11/06/21 14:20 Magnesium 2.10 mg/dL (1.7-2.3) 10/30/21 10:54 Total Bilirubin 0.20 mg/dL (0.1-1.2) 11/02/21 05:35 AST 23 units/L (5-40) 11/02/21 05:35 ALT 22 units/L (7-56) 11/02/21 05:35 Alkaline Phosphatase 86 units/L (35-129) 11/02/21 05:35 Troponin T 0.049 ng/mL (0.00-0.029) H 10/30/21 13:37 Total Protein 5.3 g/dL (6.3-8.2) L 11/02/21 05:35 Albumin 2.7 g/dL (3.9-5) L 11/02/21 05:35 Albumin/Globulin Ratio 1.0 % 11/02/21 05:35 Triglycerides 173 mg/dL (2-149) H 10/30/21 10:54 Cholesterol 189 mg/dL (50-199) 10/30/21 10:54 LDL Cholesterol Direct 110 mg/dL (50-130) 10/30/21 10:54 HDL Cholesterol 59 mg/dL (40-59) 10/30/21 10:54 Cholesterol/HDL Ratio 3.20 % 10/30/21 10:54 Lipase 21 units/L (13-60) 10/30/21 10:54 PTH Intact 78.77 pg/mL (15-65) H 11/05/21 06:03 Urine Color Straw (Yellow) 10/30/21 11:45 Urine Turbidity Clear (Clear) 10/30/21 11:45 Specific [place] (Man) 1.010 (1.003-1.030) 10/30/21 11:45 Ur Protein (Man) 3+ mg/dL (Negative) 10/30/21 11:45 Ur Ketones (Man) 5 (Negative) 10/30/21 11:45 Ur Reducing Substances Not Reportable 10/30/21 11:45 Urine Bilirubin (Man) Negative (Negative) 10/30/21 11:45 Urine WBC (Auto) 2.0 /HPF (0.0-6.0) 10/30/21 11:45 Urine RBC (Auto) 2.0 /HPF (0.0-6.0) 10/30/21 11:45 U Epithel Cells (Auto) < 1.0 /HPF (0-13.0) 10/30/21 11:45 Urine RBC (Manual) 1+ (Negative) 10/30/21 11:45 Urine Creatinine 91.8 mg/dL (0.1-20.0) H 11/05/21 23:45 Protein/Creatinin Ratio 3.51 11/05/21 23:45 Urine Sodium 40 mmol/L 11/05/21 23:45 Urine Total Protein 322 mg/dL (5-11.8) H 11/05/21 23:45 Dobson/IV: Voiding Method Urinal Active Medications - Current Medications Current Medications: Generic Name Dose Route Start Last Admin Trade Name Freq PRN Reason Stop Dose Admin Acetaminophen 650 mg 10/30/21 17:06 11/01/21 22:21 Acetaminophen 325 Mg Tab PO 650 mg Q4H PRN Administration Pain MILD(1-3)/Fever >100.5/WILLS Aspirin 81 mg 11/04/21 10:00 11/07/21 10:04 Aspirin 81 Mg Tab Chew PO 81 mg QDAY LOLY Administration Famotidine 20 mg 11/04/21 11:00 11/07/21 10:04 Famotidine 20 Mg Tab PO 20 mg DAILY LOLY Administration Gabapentin 300 mg 11/03/21 22:00 11/07/21 22:16 Gabapentin 300 Mg Cap PO 300 mg BID LOLY Administration Heparin Sodium (Porcine) 5,000 unit 10/30/21 22:00 11/07/21 22:16 Heparin 5,000 Unit/1 Ml Vial SUB-Q 5,000 unit Q12HR LOLY Administration Hydralazine HCl 10 mg 10/31/21 00:19 11/06/21 06:48 Hydralazine 20 Mg/1 Ml Inj IV 10 mg Q6HR PRN Administration SBP greater than 160 Sodium Chloride 1,000 mls @ 75 mls/hr 11/04/21 06:15 11/06/21 16:36 Nacl 0.9% 1000 Ml IV 75 mls/hr DIRECT LOLY Administration Insulin Glargine 15 units 11/04/21 10:00 11/07/21 10:07 Insulin Glargine 100 Units/Ml SUB-Q 15 units DAILY LOLY Administration Insulin Human Lispro 0 unit 11/06/21 22:00 11/07/21 23:19 Insulin Lispro 100 Unit/Ml SUB-Q 4 unit ACHS LOLY Administration Protocol Labetalol HCl 200 mg 11/03/21 22:00 11/07/21 22:17 Labetalol 200 Mg Tab PO 200 mg BID LOLY Administration Metoclopramide HCl 5 mg 11/04/21 11:00 Metoclopramide 10 Mg/2 Ml Inj IV Q6H PRN Nausea And Vomiting Morphine Sulfate 2 mg 10/30/21 17:06 Morphine 2 Mg/1 Ml Inj IV Q4H PRN Pain, Moderate (4-6) Ondansetron HCl 4 mg 10/30/21 17:06 Ondansetron 4 Mg/2 Ml Inj IV Q8H PRN Nausea And Vomiting Oxycodone/Acetaminophen 1 tab 10/30/21 17:06 11/05/21 10:47 Oxycodone /Acetaminophen 5-325mg Tab PO 1 tab Q6H PRN Administration Pain, Moderate (4-6) Sodium Chloride 10 ml 10/30/21 22:00 11/07/21 22:17 Sodium Chloride 0.9% 10 Ml Flush Syringe IV 10 ml BID LOLY Administration Sodium Chloride 10 ml 10/30/21 17:06 Sodium Chloride 0.9% 10 Ml Flush Syringe IV PRN PRN LINE FLUSH Timolol Maleate 1 drops 11/03/21 22:00 11/07/21 22:23 Timolol 0.5% Ophth Soln 5 Ml OU 1 drops BID LOLY Administration Nutrition/Malnutrition Assess - Dietary Evaluation Nutrition/Malnutrition Findings: Nutrition Notes Start: 11/07/21 13:56 Freq: Status: Active Protocol: Document 11/07/21 13:56 LUCIANA (Rec: 11/07/21 13:58 LUCIANA [id number]) Nutrition Notes Need for Assessment generated from: LOS Initial or Follow up Brief Note Current Diet Cardiac/Consistent CHO Height 5 ft 7 in Weight 79.7 kg [place] Body Weight (kg) 67.27 BMI 27.5 Weight Status Overweight Subjective/Other Information Pt screened for LOS. He has consumed 88% of meals since admission. Percent of energy/protein needs met: 86% energy 95% pro Burn Absent Trauma Absent Current % PO Good (75-100%) Minimum of two criteria No Is patient on ventilator? No Is Patient Ambulatory and/or Out of Bed Yes REE-([facility]-ambulatory/OOB) [ 2021.319 [id number]] Calculation Used for Recommendations Aldair Bermudez Additional Notes Pro needs 1-1.2g/k-96g/ day Fluid needs 1ml/kcal Nutrition Intervention Revisit per MD consult or patient Sign Off request:
[2021-11-08] MEDS: ASPIRIN 81 MG TAB CHEW PO SCH (10:13)
[2021-11-08] MEDS: INSULIN GLARGINE 100 UNITS/ML SUB-Q SCH (10:25)
[2021-11-08] MEDS: TIMOLOL 0.5% OPHTH SOLN 5 ML OU SCH ×2 (11:04→23:07)
[2021-11-08] MEDS: FAMOTIDINE 20 MG TAB PO SCH (12:30)
[2021-11-08] MEDS: HEPARIN 5,000 UNIT/1 ML VIAL SUB-Q SCH ×2 (12:40→23:06)
[2021-11-08] MEDS: GABAPENTIN 300 MG CAP PO SCH ×2 (12:45→23:06)
[2021-11-08] MEDS: oxyCODONE /ACETAMINOPHEN 5-325MG TAB PO PRN (14:55)
[2021-11-09 05:10] LABS: Basophils % (Auto) 0.4 % (0.0-1.8); Eosinophils # (Auto) 0.2 K/mm3 (0.0-0.4); Eosinophils % (Auto) 4.4 % (0.0-4.3); Hematocrit 31.3 % (35.5-45.6); Hemoglobin 10.2 gm/dl (11.8-15.2); Lymphocytes % (Auto) 35.4 % (13.4-35.0); Mean Corpuscular HGB Conc 33 % (32-34); Mean Corpuscular Volume 80 fl (84-94); Monocytes # (Auto) 0.6 K/mm3 (0.0-0.8); Monocytes % (Auto) 10.4 % (0.0-7.3); Platelet Count 119 K/mm3 (140-440); Red Cell Distribution Width 15.7 % (13.2-15.2)
[2021-11-09 05:24] LABS: Calcium 8.4 mg/dL (8.4-10.2)
[2021-11-09] MEDS: INSULIN LISPRO 100 UNIT/ML SUB-Q SCH ×4 (08:09→22:58)
[2021-11-09] MEDS: TIMOLOL 0.5% OPHTH SOLN 5 ML OU SCH ×2 (10:08→22:59)
--- NOTE | 2021-11-09 10:37 | Progress Note ---
Assessment and Plan Assessment and plan: 61-year-old legally blind male with history of insulin-dependent diabetes and hypertension, noncompliant with his insulin because of social issues comes in for increasing generalized weakness. In the emergency room patient was found to have high blood glucose levels of around 580. Patient being admitted for management of his uncontrolled diabetes and hyperosmolar nonketotic state. Diabetes mellitus type 2, Hyperosmolar nonketotic state Acute kidney injury on CKD. Etiology probably secondary to vasomotor nephropathy Protein calorie malnutrition Hospital course 10/31/2021 Patient still feels very weak Has generalized weakness Blood glucose levels improved 11/01/2021 Blood glucose levels are high Insulin adjusted Lantus added to morning regimen 11/02/2021 Symptomatically better Blood glucose levels in the mid 200s Patient will discharge tomorrow Lantus twice daily--15 units in a.m. and 25 units in p.m. Add metformin Case management to look into the [facility] placement 11/04/2021. Patient's creatinine stabilized at 1.8 and likely secondary to CKD. Will check renal ultrasound to confirm and rule out obstruction. 11/07/2021. Awaiting placement. 11/08/2021. Patient's baseline creatinine is likely at 2.0 with CKD. I discussed case with nephrology. Renal ultrasound was negative. Awaiting placement. 11/09/2021. Awaiting placement. History Interval history: No new issues overnight Hospitalist Physical - Constitutional Vitals: Temp Pulse Resp BP Pulse Ox 97.2 F L 70 18 166/78 100 11/08/21 23:09 11/08/21 23:09 11/08/21 23:09 11/08/21 23:09 11/08/21 23:09 General appearance: Present: no acute distress, well-nourished - EENT Eyes: Present: PERRL, EOM intact ENT: hearing intact, clear oral mucosa, dentition normal - Neck Neck: Present: supple, normal ROM - Respiratory Respiratory effort: normal Respiratory: bilateral: CTA - Cardiovascular Rhythm: regular Heart Sounds: Present: S1 & S2. Absent: gallop, rub - Extremities Extremities: no ischemia, No edema, Full ROM - Abdominal General gastrointestinal: soft, non-tender, non-distended, normal bowel sounds - Integumentary Integumentary: Present: clear, warm, dry - Neurologic Neurologic: CNII-XII intact, moves all extremities HEART Score - HEART Score Troponin: Troponin T 0.049 ng/mL (0.00-0.029) H 10/30/21 13:37 Results - Labs CBC & Chem 7: 11/09/21 04:29 11/09/21 04:29 Labs: Laboratory Last Values WBC 5.6 K/mm3 (4.5-11.0) 11/09/21 04:29 RBC 3.90 M/mm3 (3.65-5.03) 11/09/21 04:29 Hgb 10.2 gm/dl (11.8-15.2) L 11/09/21 04:29 Hct 31.3 % (35.5-45.6) L 11/09/21 04:29 MCV 80 fl (84-94) L 11/09/21 04:29 MCH 26 pg (28-32) L 11/09/21 04:29 MCHC 33 % (32-34) 11/09/21 04:29 RDW 15.7 % (13.2-15.2) H 11/09/21 04:29 Plt Count 119 K/mm3 (140-440) L 11/09/21 04:29 Lymph % (Auto) 35.4 % (13.4-35.0) H 11/09/21 04:29 [place] % (Auto) 10.4 % (0.0-7.3) H 11/09/21 04:29 Eos % (Auto) 4.4 % (0.0-4.3) H 11/09/21 04:29 Baso % (Auto) 0.4 % (0.0-1.8) 11/09/21 04:29 Lymph # (Auto) 2.0 K/mm3 (1.2-5.4) 11/09/21 04:29 [place] # (Auto) 0.6 K/mm3 (0.0-0.8) 11/09/21 04: Eos # (Auto) 0.2 K/mm3 (0.0-0.4) 11/09/21 04:29 Baso # (Auto) 0.0 K/mm3 (0.0-0.1) 11/09/21 04:29 Add Manual Diff Complete 11/02/21 05:35 Total Counted 100 11/02/21 05:35 Seg Neutrophils % 49.4 % (40.0-70.0) 11/09/21 04:29 Seg Neuts % (Manual) 66.0 % (40.0-70.0) 11/02/21 05:35 Band Neutrophils % 0 % 11/02/21 05:35 Lymphocytes % (Manual) 26.0 % (13.4-35.0) 11/02/21 05:35 Reactive Lymphs % (Man) 0 % 11/02/21 05:35 Monocytes % (Manual) 8.0 % (0.0-7.3) H 11/02/21 05:35 Eosinophils % (Manual) 0 % (0.0-4.3) 11/02/21 05:35 Basophils % (Manual) 0 % (0.0-1.8) 11/02/21 05:35 Metamyelocytes % 0 % 11/02/21 05:35 Myelocytes % 0 % 11/02/21 05:35 Promyelocytes % 0 % 11/02/21 05:35 Blast Cells % 0 % 11/02/21 05:35 Nucleated RBC % Not Reportable 11/02/21 05:35 Seg Neutrophils # 2.7 K/mm3 (1.8-7.7) 11/09/21 04:29 Seg Neutrophils # Man 3.8 K/mm3 (1.8-7.7) 11/02/21 05:35 Band Neutrophils # 0.0 K/mm3 11/02/21 05:35 Lymphocytes # (Manual) 1.5 K/mm3 (1.2-5.4) 11/02/21 05:35 Abs React Lymphs (Man) 0.0 K/mm3 11/02/21 05:35 Monocytes # (Manual) 0.5 K/mm3 (0.0-0.8) 11/02/21 05:35 Eosinophils # (Manual) 0.0 K/mm3 (0.0-0.4) 11/02/21 05:35 Basophils # (Manual) 0.0 K/mm3 (0.0-0.1) 11/02/21 05:35 Metamyelocytes # 0.0 K/mm3 11/02/21 05:35 Myelocytes # 0.0 K/mm3 11/02/21 05:35 Promyelocytes # 0.0 K/mm3 11/02/21 05:35 Blast Cells # 0.0 K/mm3 11/02/21 05:35 WBC Morphology Not Reportable 11/02/21 05:35 Hypersegmented Neuts Not Reportable 11/02/21 05:35 Hyposegmented Neuts Not Reportable 11/02/21 05:35 Hypogranular Neuts Not Reportable 11/02/21 05:35 Smudge Cells Not Reportable 11/02/21 05:35 Toxic Granulation Not Reportable 11/02/21 05:35 Toxic Vacuolation Not Reportable 11/02/21 05:35 Dohle Bodies Not Reportable 11/02/21 05:35 Pelger-Huet Anomaly Not Reportable 11/02/21 05:35 Jarvis Rods Not Reportable 11/02/21 05:35 Platelet Estimate Consistent w auto 11/02/21 05:35 Clumped Platelets Not Reportable 11/02/21 05:35 Plt Clumps, EDTA Not Reportable 11/02/21 05:35 Large Platelets Not Reportable 11/02/21 05:35 Giant Platelets Not Reportable 11/02/21 05:35 Platelet Satelliting Not Reportable 11/02/21 05:35 Plt Morphology Comment Not Reportable 11/02/21 05:35 RBC Morphology Normal 11/02/21 05:35 Dimorphic RBCs Not Reportable 11/02/21 05:35 Polychromasia Not Reportable 11/02/21 05:35 Hypochromasia Not Reportable 11/02/21 05:35 Poikilocytosis Not Reportable 11/02/21 05:35 Anisocytosis Not Reportable 11/02/21 05:35 Microcytosis Not Reportable 11/02/21 05:35 Macrocytosis Not Reportable 11/02/21 05:35 Spherocytes Not Reportable 11/02/21 05:35 Pappenheimer Bodies Not Reportable 11/02/21 05:35 Sickle Cells Not Reportable 11/02/21 05:35 Target Cells Not Reportable 11/02/21 05:35 Tear Drop Cells Not Reportable 11/02/21 05:35 Ovalocytes Not Reportable 11/02/21 05:35 Helmet Cells Not Reportable 11/02/21 05:35 [place] Bodies Not Reportable 11/02/21 05:35 [place] Rings Not Reportable 11/02/21 05:35 Karla Cells Not Reportable 11/02/21 05:35 Bite Cells Not Reportable 11/02/21 05:35 Crenated Cell Not Reportable 11/02/21 05:35 Elliptocytes Not Reportable 11/02/21 05:35 Acanthocytes (Spur) Not Reportable 11/02/21 05:35 Rouleaux Not Reportable 11/02/21 05:35 Hemoglobin C Crystals Not Reportable 11/02/21 05:35 Schistocytes Not Reportable 11/02/21 05:35 Malaria parasites Not Reportable 11/02/21 05:35 [place] Bodies Not Reportable 11/02/21 05:35 Hem Pathologist Commnt No 11/02/21 05:35 Sodium 142 mmol/L (137-145) 11/09/21 04:29 Potassium 4.5 mmol/L (3.6-5.0) 11/09/21 04:29 Chloride 109.9 mmol/L (98-107) H 11/09/21 04:29 Carbon Dioxide 25 mmol/L (22-30) 11/09/21 04:29 Anion Gap 12 mmol/L 11/09/21 04:29 BUN 29 mg/dL (9-20) H 11/09/21 04:29 Creatinine 1.6 mg/dL (0.8-1.3) H 11/09/21 04:29 Estimated GFR 53 ml/min 11/09/21 04:29 BUN/Creatinine Ratio 18 % 11/09/21 04:29 Glucose 126 mg/dL (75-100) H 11/09/21 04:29 POC Glucose 236 mg/dL (70-105) H 11/08/21 20:45 Hemoglobin A1c 8.7 % (4-6) H 10/31/21 05:15 Ketones Quantitative Cancelled 10/30/21 10:54 Ketones Quantitative Small (Negative) 10/30/21 10:54 Lactic Acid 1.10 mmol/L (0.7-2.0) 10/30/21 10:54 Calcium 8.4 mg/dL (8.4-10.2) 11/09/21 04:29 Phosphorus 3.50 mg/dL (2.5-4.5) 11/06/21 14:20 Magnesium 2.10 mg/dL (1.7-2.3) 10/30/21 10:54 Total Bilirubin 0.20 mg/dL (0.1-1.2) 11/02/21 05:35 AST 23 units/L (5-40) 11/02/21 05:35 ALT 22 units/L (7-56) 11/02/21 05:35 Alkaline Phosphatase 86 units/L (35-129) 11/02/21 05:35 Troponin T 0.049 ng/mL (0.00-0.029) H 10/30/21 13:37 Total Protein 5.3 g/dL (6.3-8.2) L 11/02/21 05:35 Albumin 2.7 g/dL (3.9-5) L 11/02/21 05:35 Albumin/Globulin Ratio 1.0 % 11/02/21 05:35 Triglycerides 173 mg/dL (2-149) H 10/30/21 10:54 Cholesterol 189 mg/dL (50-199) 10/30/21 10:54 LDL Cholesterol Direct 110 mg/dL (50-130) 10/30/21 10:54 HDL Cholesterol 59 mg/dL (40-59) 10/30/21 10:54 Cholesterol/HDL Ratio 3.20 % 10/30/21 10:54 Lipase 21 units/L (13-60) 10/30/21 10:54 PTH Intact 78.77 pg/mL (15-65) H 11/05/21 06:03 Urine Color Straw (Yellow) 10/30/21 11:45 Urine Turbidity Clear (Clear) 10/30/21 11:45 Specific [place] (Man) 1.010 (1.003-1.030) 10/30/21 11:45 Ur Protein (Man) 3+ mg/dL (Negative) 10/30/21 11:45 Ur Ketones (Man) 5 (Negative) 10/30/21 11:45 Ur Reducing Substances Not Reportable 10/30/21 11:45 Urine Bilirubin (Man) Negative (Negative) 10/30/21 11:45 Urine WBC (Auto) 2.0 /HPF (0.0-6.0) 10/30/21 11:45 Urine RBC (Auto) 2.0 /HPF (0.0-6.0) 10/30/21 11:45 U Epithel Cells (Auto) < 1.0 /HPF (0-13.0) 10/30/21 11:45 Urine RBC (Manual) 1+ (Negative) 10/30/21 11:45 Urine Creatinine 91.8 mg/dL (0.1-20.0) H 11/05/21 23:45 Protein/Creatinin Ratio 3.51 11/05/21 23:45 Urine Sodium 40 mmol/L 11/05/21 23:45 Urine Total Protein 322 mg/dL (5-11.8) H 11/05/21 23:45 Dobson/IV: Voiding Method Urinal Active Medications - Current Medications Current Medications: Generic Name Dose Route Start Last Admin Trade Name Freq PRN Reason Stop Dose Admin Acetaminophen 650 mg 10/30/21 17:06 11/01/21 22:21 Acetaminophen 325 Mg Tab PO 650 mg Q4H PRN Administration Pain MILD(1-3)/Fever >100.5/WILLS Aspirin 81 mg 11/04/21 10:00 11/08/21 10:13 Aspirin 81 Mg Tab Chew PO 81 mg QDAY LOLY Administration Famotidine 20 mg 11/04/21 11:00 11/08/21 12:30 Famotidine 20 Mg Tab PO 20 mg DAILY LOLY Administration Gabapentin 300 mg 11/03/21 22:00 11/08/21 23:06 Gabapentin 300 Mg Cap PO 300 mg BID LOLY Administration Heparin Sodium (Porcine) 5,000 unit 10/30/21 22:00 11/08/21 23:06 Heparin 5,000 Unit/1 Ml Vial SUB-Q 5,000 unit Q12HR LOLY Administration Hydralazine HCl 10 mg 10/31/21 00:19 11/06/21 06:48 Hydralazine 20 Mg/1 Ml Inj IV 10 mg Q6HR PRN Administration SBP greater than 160 Sodium Chloride 1,000 mls @ 75 mls/hr 11/04/21 06:15 11/06/21 16:36 Nacl 0.9% 1000 Ml IV 75 mls/hr DIRECT LOLY Administration Insulin Glargine 15 units 11/04/21 10:00 11/08/21 10:25 Insulin Glargine 100 Units/Ml SUB-Q 15 units DAILY LOLY Administration Insulin Human Lispro 0 unit 11/06/21 22:00 11/08/21 23:06 Insulin Lispro 100 Unit/Ml SUB-Q 3 unit ACHS LOLY Administration Protocol Labetalol HCl 200 mg 11/03/21 22:00 11/08/21 23:06 Labetalol 200 Mg Tab PO 200 mg BID LOLY Administration Metoclopramide HCl 5 mg 11/04/21 11:00 Metoclopramide 10 Mg/2 Ml Inj IV Q6H PRN Nausea And Vomiting Morphine Sulfate 2 mg 10/30/21 17:06 Morphine 2 Mg/1 Ml Inj IV Q4H PRN Pain, Moderate (4-6) Ondansetron HCl 4 mg 10/30/21 17:06 Ondansetron 4 Mg/2 Ml Inj IV Q8H PRN Nausea And Vomiting Oxycodone/Acetaminophen 1 tab 10/30/21 17:06 11/08/21 14:55 Oxycodone /Acetaminophen 5-325mg Tab PO 1 tab Q6H PRN Administration Pain, Moderate (4-6) Sodium Chloride 10 ml 10/30/21 22:00 11/08/21 23:06 Sodium Chloride 0.9% 10 Ml Flush Syringe IV 10 ml BID LOLY Administration Sodium Chloride 10 ml 10/30/21 17:06 Sodium Chloride 0.9% 10 Ml Flush Syringe IV PRN PRN LINE FLUSH Timolol Maleate 1 drops 11/03/21 22:00 11/08/21 23:07 Timolol 0.5% Ophth Soln 5 Ml OU 1 drops BID LOLY Administration Nutrition/Malnutrition Assess - Dietary Evaluation Nutrition/Malnutrition Findings: Nutrition Notes Start: 11/07/21 13:56 Freq: Status: Active Protocol: Document 11/07/21 13:56 LUCIANA (Rec: 11/07/21 13:58 LUCIANA [id number]) Nutrition Notes Need for Assessment generated from: LOS Initial or Follow up Brief Note Current Diet Cardiac/Consistent CHO Height 5 ft 7 in Weight 79.7 kg [place] Body Weight (kg) 67.27 BMI 27.5 Weight Status Overweight Subjective/Other Information Pt screened for LOS. He has consumed 88% of meals since admission. Percent of energy/protein needs met: 86% energy 95% pro Burn Absent Trauma Absent Current % PO Good (75-100%) Minimum of two criteria No Is patient on ventilator? No Is Patient Ambulatory and/or Out of Bed Yes [facility] [ 2021.319 [id number]] Calculation Used for Recommendations [facility] Additional Notes Pro needs 1-1.2g/k-96g/ day Fluid needs 1ml/kcal Nutrition Intervention Revisit per MD consult or patient Sign Off request:
[2021-11-09] MEDS: INSULIN GLARGINE 100 UNITS/ML SUB-Q SCH (10:44)
[2021-11-09] MEDS: FAMOTIDINE 20 MG TAB PO SCH (10:45)
[2021-11-09] MEDS: ASPIRIN 81 MG TAB CHEW PO SCH (10:45)
[2021-11-09] MEDS: GABAPENTIN 300 MG CAP PO SCH ×2 (10:45→22:57)
[2021-11-09] MEDS: HEPARIN 5,000 UNIT/1 ML VIAL SUB-Q SCH ×2 (10:46→22:57)
[2021-11-10 06:17] LABS: Basophils % (Auto) 0.4 % (0.0-1.8); Eosinophils # (Auto) 0.2 K/mm3 (0.0-0.4); Eosinophils % (Auto) 3.6 % (0.0-4.3); Hematocrit 33.5 % (35.5-45.6); Hemoglobin 10.7 gm/dl (11.8-15.2); Lymphocytes # (Auto) 1.9 K/mm3 (1.2-5.4); Lymphocytes % (Auto) 27.7 % (13.4-35.0); Mean Corpuscular HGB Conc 32 % (32-34); Mean Corpuscular Volume 81 fl (84-94); Monocytes # (Auto) 0.6 K/mm3 (0.0-0.8); Monocytes % (Auto) 9.1 % (0.0-7.3); Platelet Count 135 K/mm3 (140-440); Red Blood Count 4.12 M/mm3 (3.65-5.03); Red Cell Distribution Width 15.8 % (13.2-15.2)
[2021-11-10 06:36] LABS: Calcium 8.7 mg/dL (8.4-10.2)
[2021-11-10] MEDS: ASPIRIN 81 MG TAB CHEW PO SCH (09:05)
[2021-11-10] MEDS: HEPARIN 5,000 UNIT/1 ML VIAL SUB-Q SCH ×2 (09:05→22:34)
[2021-11-10] MEDS: FAMOTIDINE 20 MG TAB PO SCH (09:05)
[2021-11-10] MEDS: INSULIN GLARGINE 100 UNITS/ML SUB-Q SCH (09:05)
[2021-11-10] MEDS: GABAPENTIN 300 MG CAP PO SCH ×2 (09:05→22:34)
[2021-11-10] MEDS: INSULIN LISPRO 100 UNIT/ML SUB-Q SCH ×4 (09:06→22:33)
[2021-11-10] MEDS: TIMOLOL 0.5% OPHTH SOLN 5 ML OU SCH ×2 (09:07→22:36)
[2021-11-10] MEDS: oxyCODONE /ACETAMINOPHEN 5-325MG TAB PO PRN (09:42)
--- NOTE | 2021-11-10 10:04 | Progress Note ---
Assessment and Plan Assessment and plan: 61-year-old legally blind male with history of insulin-dependent diabetes and hypertension, noncompliant with his insulin because of social issues comes in for increasing generalized weakness. In the emergency room patient was found to have high blood glucose levels of around 580. Patient being admitted for management of his uncontrolled diabetes and hyperosmolar nonketotic state. Diabetes mellitus type 2, Hyperosmolar nonketotic state Acute kidney injury on CKD. Etiology probably secondary to vasomotor nephropathy Protein calorie malnutrition Hospital course 10/31/2021 Patient still feels very weak Has generalized weakness Blood glucose levels improved 11/01/2021 Blood glucose levels are high Insulin adjusted Lantus added to morning regimen 11/02/2021 Symptomatically better Blood glucose levels in the mid 200s Patient will discharge tomorrow Lantus twice daily--15 units in a.m. and 25 units in p.m. Add metformin Case management to look into the long term placement 11/04/2021. Patient's creatinine stabilized at 1.8 and likely secondary to CKD. Will check renal ultrasound to confirm and rule out obstruction. 11/07/2021. Awaiting placement. 11/08/2021. Patient's baseline creatinine is likely at 2.0 with CKD. I discussed case with nephrology. Renal ultrasound was negative. Awaiting placement. 11/09/2021. Awaiting placement. 11/10/2021. Await placement History Interval history: No new issues overnight Hospitalist Physical - Constitutional Vitals: Temp Pulse Resp BP Pulse Ox 97.8 F 63 18 156/77 96 11/09/21 22:46 11/09/21 22:46 11/09/21 22:46 11/09/21 22:46 11/10/21 08:39 General appearance: Present: no acute distress, well-nourished - EENT Eyes: Present: PERRL, EOM intact ENT: hearing intact, clear oral mucosa, dentition normal - Neck Neck: Present: supple, normal ROM - Respiratory Respiratory effort: normal Respiratory: bilateral: CTA - Cardiovascular Rhythm: regular Heart Sounds: Present: S1 & S2. Absent: gallop, rub - Extremities Extremities: no ischemia, No edema, Full ROM - Abdominal General gastrointestinal: soft, non-tender, non-distended, normal bowel sounds - Integumentary Integumentary: Present: clear, warm, dry - Neurologic Neurologic: CNII-XII intact, moves all extremities HEART Score - HEART Score Troponin: Troponin T 0.049 ng/mL (0.00-0.029) H 10/30/21 13:37 Results - Labs CBC & Chem 7: 11/10/21 05:36 11/10/21 05:36 Labs: Laboratory Last Values WBC 6.9 K/mm3 (4.5-11.0) 11/10/21 05:36 RBC 4.12 M/mm3 (3.65-5.03) 11/10/21 05:36 Hgb 10.7 gm/dl (11.8-15.2) L 11/10/21 05:36 Hct 33.5 % (35.5-45.6) L 11/10/21 05:36 MCV 81 fl (84-94) L 11/10/21 05:36 MCH 26 pg (28-32) L 11/10/21 05:36 MCHC 32 % (32-34) 11/10/21 05:36 RDW 15.8 % (13.2-15.2) H 11/10/21 05:36 Plt Count 135 K/mm3 (140-440) L 11/10/21 05:36 Lymph % (Auto) 27.7 % (13.4-35.0) 11/10/21 05:36 [place] % (Auto) 9.1 % (0.0-7.3) H 11/10/21 05:36 Eos % (Auto) 3.6 % (0.0-4.3) 11/10/21 05:36 Baso % (Auto) 0.4 % (0.0-1.8) 11/10/21 05:36 Lymph # (Auto) 1.9 K/mm3 (1.2-5.4) 11/10/21 05:36 [place] # (Auto) 0.6 K/mm3 (0.0-0.8) 11/10/21 05:36 Eos # (Auto) 0.2 K/mm3 (0.0-0.4) 11/10/21 05:36 Baso # (Auto) 0.0 K/mm3 (0.0-0.1) 11/10/21 05:36 Add Manual Diff Complete 11/02/21 05:35 Total Counted 100 11/02/21 05:35 Seg Neutrophils % 59.2 % (40.0-70.0) 11/10/21 05:36 Seg Neuts % (Manual) 66.0 % (40.0-70.0) 11/02/21 05:35 Band Neutrophils % 0 % 11/02/21 05:35 Lymphocytes % (Manual) 26.0 % (13.4-35.0) 11/02/21 05:35 Reactive Lymphs % (Man) 0 % 11/02/21 05:35 Monocytes % (Manual) 8.0 % (0.0-7.3) H 11/02/21 05:35 Eosinophils % (Manual) 0 % (0.0-4.3) 11/02/21 05:35 Basophils % (Manual) 0 % (0.0-1.8) 11/02/21 05:35 Metamyelocytes % 0 % 11/02/21 05:35 Myelocytes % 0 % 11/02/21 05:35 Promyelocytes % 0 % 11/02/21 05:35 Blast Cells % 0 % 11/02/21 05:35 Nucleated RBC % Not Reportable 11/02/21 05:35 Seg Neutrophils # 4.1 K/mm3 (1.8-7.7) 11/10/21 05:36 Seg Neutrophils # Man 3.8 K/mm3 (1.8-7.7) 11/02/21 05:35 Band Neutrophils # 0.0 K/mm3 11/02/21 05:35 Lymphocytes # (Manual) 1.5 K/mm3 (1.2-5.4) 11/02/21 05:35 Abs React Lymphs (Man) 0.0 K/mm3 11/02/21 05:35 Monocytes # (Manual) 0.5 K/mm3 (0.0-0.8) 11/02/21 05:35 Eosinophils # (Manual) 0.0 K/mm3 (0.0-0.4) 11/02/21 05:35 Basophils # (Manual) 0.0 K/mm3 (0.0-0.1) 11/02/21 05:35 Metamyelocytes # 0.0 K/mm3 11/02/21 05:35 Myelocytes # 0.0 K/mm3 11/02/21 05:35 Promyelocytes # 0.0 K/mm3 11/02/21 05:35 Blast Cells # 0.0 K/mm3 11/02/21 05:35 WBC Morphology Not Reportable 11/02/21 05:35 Hypersegmented Neuts Not Reportable 11/02/21 05:35 Hyposegmented Neuts Not Reportable 11/02/21 05:35 Hypogranular Neuts Not Reportable 11/02/21 05:35 Smudge Cells Not Reportable 11/02/21 05:35 Toxic Granulation Not Reportable 11/02/21 05:35 Toxic Vacuolation Not Reportable 11/02/21 05:35 Dohle Bodies Not Reportable 11/02/21 05:35 Pelger-Huet Anomaly Not Reportable 11/02/21 05:35 Jarvis Rods Not Reportable 11/02/21 05:35 Platelet Estimate Consistent w auto 11/02/21 05:35 Clumped Platelets Not Reportable 11/02/21 05:35 Plt Clumps, EDTA Not Reportable 11/02/21 05:35 Large Platelets Not Reportable 11/02/21 05:35 Giant Platelets Not Reportable 11/02/21 05:35 Platelet Satelliting Not Reportable 11/02/21 05:35 Plt Morphology Comment Not Reportable 11/02/21 05:35 RBC Morphology Normal 11/02/21 05:35 Dimorphic RBCs Not Reportable 11/02/21 05:35 Polychromasia Not Reportable 11/02/21 05:35 Hypochromasia Not Reportable 11/02/21 05:35 Poikilocytosis Not Reportable 11/02/21 05:35 Anisocytosis Not Reportable 11/02/21 05:35 Microcytosis Not Reportable 11/02/21 05:35 Macrocytosis Not Reportable 11/02/21 05:35 Spherocytes Not Reportable 11/02/21 05:35 Pappenheimer Bodies Not Reportable 11/02/21 05:35 Sickle Cells Not Reportable 11/02/21 05:35 Target Cells Not Reportable 11/02/21 05:35 Tear Drop Cells Not Reportable 11/02/21 05:35 Ovalocytes Not Reportable 11/02/21 05:35 Helmet Cells Not Reportable 11/02/21 05:35 [place] Bodies Not Reportable 11/02/21 05:35 [place] Rings Not Reportable 11/02/21 05:35 [place] Cells Not Reportable 11/02/21 05:35 Bite Cells Not Reportable 11/02/21 05:35 Crenated Cell Not Reportable 11/02/21 05:35 Elliptocytes Not Reportable 11/02/21 05:35 Acanthocytes (Spur) Not Reportable 11/02/21 05:35 Rouleaux Not Reportable 11/02/21 05:35 Hemoglobin C Crystals Not Reportable 11/02/21 05:35 Schistocytes Not Reportable 11/02/21 05:35 Malaria parasites Not Reportable 11/02/21 05:35 [place] Bodies Not Reportable 11/02/21 05:35 Hem Pathologist Commnt No 11/02/21 05:35 Sodium 140 mmol/L (137-145) 11/10/21 05:36 Potassium 4.9 mmol/L (3.6-5.0) 11/10/21 05:36 Chloride 107.6 mmol/L (98-107) H 11/10/21 05:36 Carbon Dioxide 23 mmol/L (22-30) 11/10/21 05:36 Anion Gap 14 mmol/L 11/10/21 05:36 BUN 31 mg/dL (9-20) H 11/10/21 05:36 Creatinine 1.7 mg/dL (0.8-1.3) H 11/10/21 05:36 Estimated GFR 50 ml/min 11/10/21 05:36 BUN/Creatinine Ratio 18 % 11/10/21 05:36 Glucose 162 mg/dL (75-100) H 11/10/21 05:36 POC Glucose 231 mg/dL (70-105) H 11/09/21 21:08 Hemoglobin A1c 8.7 % (4-6) H 10/31/21 05:15 Ketones Quantitative Cancelled 10/30/21 10:54 Ketones Quantitative Small (Negative) 10/30/21 10:54 Lactic Acid 1.10 mmol/L (0.7-2.0) 10/30/21 10:54 Calcium 8.7 mg/dL (8.4-10.2) 11/10/21 05:36 Phosphorus 3.50 mg/dL (2.5-4.5) 11/06/21 14:20 Magnesium 2.10 mg/dL (1.7-2.3) 10/30/21 10:54 Total Bilirubin 0.20 mg/dL (0.1-1.2) 11/02/21 05:35 AST 23 units/L (5-40) 11/02/21 05:35 ALT 22 units/L (7-56) 11/02/21 05:35 Alkaline Phosphatase 86 units/L (35-129) 11/02/21 05:35 Troponin T 0.049 ng/mL (0.00-0.029) H 10/30/21 13:37 Total Protein 5.3 g/dL (6.3-8.2) L 11/02/21 05:35 Albumin 2.7 g/dL (3.9-5) L 11/02/21 05:35 Albumin/Globulin Ratio 1.0 % 11/02/21 05:35 Triglycerides 173 mg/dL (2-149) H 10/30/21 10:54 Cholesterol 189 mg/dL (50-199) 10/30/21 10:54 LDL Cholesterol Direct 110 mg/dL (50-130) 10/30/21 10:54 HDL Cholesterol 59 mg/dL (40-59) 10/30/21 10:54 Cholesterol/HDL Ratio 3.20 % 10/30/21 10:54 Lipase 21 units/L (13-60) 10/30/21 10:54 PTH Intact 78.77 pg/mL (15-65) H 11/05/21 06:03 Urine Color Straw (Yellow) 10/30/21 11:45 Urine Turbidity Clear (Clear) 10/30/21 11:45 Specific [place] (Man) 1.010 (1.003-1.030) 10/30/21 11:45 Ur Protein (Man) 3+ mg/dL (Negative) 10/30/21 11:45 Ur Ketones (Man) 5 (Negative) 10/30/21 11:45 Ur Reducing Substances Not Reportable 10/30/21 11:45 Urine Bilirubin (Man) Negative (Negative) 10/30/21 11:45 Urine WBC (Auto) 2.0 /HPF (0.0-6.0) 10/30/21 11:45 Urine RBC (Auto) 2.0 /HPF (0.0-6.0) 10/30/21 11:45 U Epithel Cells (Auto) < 1.0 /HPF (0-13.0) 10/30/21 11:45 Urine RBC (Manual) 1+ (Negative) 10/30/21 11:45 Urine Creatinine 91.8 mg/dL (0.1-20.0) H 11/05/21 23:45 Protein/Creatinin Ratio 3.51 11/05/21 23:45 Urine Sodium 40 mmol/L 11/05/21 23:45 Urine Total Protein 322 mg/dL (5-11.8) H 11/05/21 23:45 [place]/IV: Voiding Method Urinal Active Medications - Current Medications Current Medications: Generic Name Dose Route Start Last Admin Trade Name Freq PRN Reason Stop Dose Admin Acetaminophen 650 mg 10/30/21 17:06 11/01/21 22:21 Acetaminophen 325 Mg Tab PO 650 mg Q4H PRN Administration Pain MILD(1-3)/Fever >100.5/WILLS Aspirin 81 mg 11/04/21 10:00 11/10/21 09:05 Aspirin 81 Mg Tab Chew PO 81 mg QDAY LOLY Administration Famotidine 20 mg 11/04/21 11:00 11/10/21 09:05 Famotidine 20 Mg Tab PO 20 mg DAILY LOLY Administration Gabapentin 300 mg 11/03/21 22:00 11/10/21 09:05 Gabapentin 300 Mg Cap PO 300 mg BID LOLY Administration Heparin Sodium (Porcine) 5,000 unit 10/30/21 22:00 11/10/21 09:05 Heparin 5,000 Unit/1 Ml Vial SUB-Q 5,000 unit Q12HR LOLY Administration Hydralazine HCl 10 mg 10/31/21 00:19 11/06/21 06:48 Hydralazine 20 Mg/1 Ml Inj IV 10 mg Q6HR PRN Administration SBP greater than 160 Sodium Chloride 1,000 mls @ 75 mls/hr 11/04/21 06:15 11/06/21 16:36 Nacl 0.9% 1000 Ml IV 75 mls/hr DIRECT LOLY Administration Insulin Glargine 15 units 11/04/21 10:00 11/10/21 09:05 Insulin Glargine 100 Units/Ml SUB-Q 15 units DAILY LOLY Administration Insulin Human Lispro 0 unit 11/06/21 22:00 11/10/21 09:06 Insulin Lispro 100 Unit/Ml SUB-Q 2 unit ACHS LOLY Administration Protocol Labetalol HCl 200 mg 11/03/21 22:00 11/10/21 09:05 Labetalol 200 Mg Tab PO 200 mg BID LOLY Administration Metoclopramide HCl 5 mg 11/04/21 11:00 Metoclopramide 10 Mg/2 Ml Inj IV Q6H PRN Nausea And Vomiting Morphine Sulfate 2 mg 10/30/21 17:06 Morphine 2 Mg/1 Ml Inj IV Q4H PRN Pain, Moderate (4-6) Ondansetron HCl 4 mg 10/30/21 17:06 Ondansetron 4 Mg/2 Ml Inj IV Q8H PRN Nausea And Vomiting Oxycodone/Acetaminophen 1 tab 10/30/21 17:06 11/10/21 09:42 Oxycodone /Acetaminophen 5-325mg Tab PO 1 tab Q6H PRN Administration Pain, Moderate (4-6) Sodium Chloride 10 ml 10/30/21 22:00 11/10/21 09:06 Sodium Chloride 0.9% 10 Ml Flush Syringe IV 10 ml BID LOLY Administration Sodium Chloride 10 ml 10/30/21 17:06 Sodium Chloride 0.9% 10 Ml Flush Syringe IV PRN PRN LINE FLUSH Timolol Maleate 1 drops 11/03/21 22:00 11/10/21 09:07 Timolol 0.5% Ophth Soln 5 Ml OU 1 drops BID LOLY Administration Nutrition/Malnutrition Assess - Dietary Evaluation Nutrition/Malnutrition Findings: Nutrition Notes Start: 11/07/21 13:56 Freq: Status: Active Protocol: Document 11/07/21 13:56 LUCIANA (Rec: 11/07/21 13:58 LUCIANA [id number]) Nutrition Notes Need for Assessment generated from: LOS Initial or Follow up Brief Note Current Diet Cardiac/Consistent CHO Height 5 ft 7 in Weight 79.7 kg [place] Body Weight (kg) 67.27 BMI 27.5 Weight Status Overweight Subjective/Other Information Pt screened for LOS. He has consumed 88% of meals since admission. Percent of energy/protein needs met: 86% energy 95% pro Burn Absent Trauma Absent Current % PO Good (75-100%) Minimum of two criteria No Is patient on ventilator? No Is Patient Ambulatory and/or Out of Bed Yes REE-([place]-ambulatory/OOB) [ 2021.319 [id number]] Calculation Used for Recommendations [facility] Additional Notes Pro needs 1-1.2g/k-96g/ day Fluid needs 1ml/kcal Nutrition Intervention Revisit per MD consult or patient Sign Off request:
[2021-11-11 05:57] LABS: Basophils % (Auto) 0.4 % (0.0-1.8); Eosinophils # (Auto) 0.3 K/mm3 (0.0-0.4); Eosinophils % (Auto) 4.3 % (0.0-4.3); Hematocrit 32.9 % (35.5-45.6); Hemoglobin 10.6 gm/dl (11.8-15.2); Lymphocytes # (Auto) 2.1 K/mm3 (1.2-5.4); Lymphocytes % (Auto) 34.6 % (13.4-35.0); Mean Corpuscular HGB Conc 32 % (32-34); Mean Corpuscular Volume 81 fl (84-94); Monocytes # (Auto) 0.6 K/mm3 (0.0-0.8); Monocytes % (Auto) 10.6 % (0.0-7.3); Platelet Count 138 K/mm3 (140-440); Red Blood Count 4.08 M/mm3 (3.65-5.03)
[2021-11-11 06:13] LABS: Calcium 8.9 mg/dL (8.4-10.2)
[2021-11-11] MEDS: INSULIN LISPRO 100 UNIT/ML SUB-Q SCH ×4 (07:30→21:51)
[2021-11-11] MEDS: GABAPENTIN 300 MG CAP PO SCH ×2 (09:17→21:50)
[2021-11-11] MEDS: FAMOTIDINE 20 MG TAB PO SCH (09:17)
[2021-11-11] MEDS: ASPIRIN 81 MG TAB CHEW PO SCH (09:17)
[2021-11-11] MEDS: HEPARIN 5,000 UNIT/1 ML VIAL SUB-Q SCH ×2 (09:18→21:51)
[2021-11-11] MEDS: INSULIN GLARGINE 100 UNITS/ML SUB-Q SCH (09:18)
[2021-11-11] MEDS: TIMOLOL 0.5% OPHTH SOLN 5 ML OU SCH ×2 (09:27→21:52)
--- NOTE | 2021-11-11 17:23 | Progress Note ---
Assessment and Plan Assessment and plan: 61-year-old legally blind male with history of insulin-dependent diabetes and hypertension, noncompliant with his insulin because of social issues comes in for increasing generalized weakness. In the emergency room patient was found to have high blood glucose levels of around 580. Patient being admitted for management of his uncontrolled diabetes and hyperosmolar nonketotic state. Hospital course: 10/31/2021 Patient still feels very weak Has generalized weakness Blood glucose levels improved 11/01/2021 Blood glucose levels are high Insulin adjusted Lantus added to morning regimen 11/02/2021 Symptomatically better Blood glucose levels in the mid 200s Patient will discharge tomorrow Lantus twice daily--15 units in a.m. and 25 units in p.m. Add metformin Case management to look into the half-way placement 11/04/2021. Patient's creatinine stabilized at 1.8 and likely secondary to CKD. Will check renal ultrasound to confirm and rule out obstruction. 11/07/2021. Awaiting placement. 11/08/2021. Patient's baseline creatinine is likely at 2.0 with CKD. I discussed case with nephrology. Renal ultrasound was negative. Awaiting placement. 11/09/2021. Awaiting placement. 11/10/2021. Await placement 11/11/2021. [facility] will be [facility] tomorrow morning. #Hyperosmolar nonketotic stateresolved #JOHNNY on CKD stage III secondary to vasomotor nephropathy (present on admission)improving Creatinine 1.9 (baseline approximately 1.7) Renally dose meds and avoid nephrotoxic drugs. Nephrology consulted; appreciate recs. 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 #Mild protein caloric malnutrition Albumin 2.7 Starting dietary supplementation #Advanced care planning -Disease education conducted, care plan discussed, diagnoses discussed, prognosis discussed, and patient acknowledges understanding with care plan -Time: +30 min #Discharge planning - Patient is pending establishment of [facility] acceptance. - Case management has been made aware. - Discharge is tentatively 11/12/2021 Disposition Plan: Discharging tomorrow Total Time Spent with Patient (Minutes): 45 minutes History Interval history: No acute events overnight. Hospitalist Physical - Constitutional Vitals: Temp Pulse Resp BP Pulse Ox 98.2 F 66 16 156/71 99 11/11/21 11:28 11/11/21 11:28 11/11/21 11:28 11/11/21 11:28 11/11/21 11:28 General appearance: Present: no acute distress, well-nourished, other (Legally blind.) - EENT Eyes: Present: discharge ENT: hearing intact, clear oral mucosa, dentition normal - Neck Neck: Present: supple, normal ROM - Respiratory Respiratory effort: normal Respiratory: bilateral: CTA - Cardiovascular Rhythm: regular Heart Sounds: Present: S1 & S2 - Extremities Extremities: no ischemia, pulses intact, pulses symmetrical, No edema, normal temperature, normal color, Full ROM Peripheral Pulses: within normal limits - Abdominal General gastrointestinal: soft, non-tender, non-distended, normal bowel sounds - Integumentary Integumentary: Present: clear, warm, dry - Psychiatric Psychiatric: appropriate mood/affect, cooperative - Neurologic Neurologic: CNII-XII intact, moves all extremities - Allied Health Allied health notes reviewed: nursing, social work, case management HEART Score - HEART Score Troponin: Troponin T 0.049 ng/mL (0.00-0.029) H 10/30/21 13:37 Results - Labs CBC & Chem 7: 11/11/21 05:19 11/11/21 05:19 Labs: Laboratory Last Values WBC 6.0 K/mm3 (4.5-11.0) 11/11/21 05:19 RBC 4.08 M/mm3 (3.65-5.03) 11/11/21 05:19 Hgb 10.6 gm/dl (11.8-15.2) L 11/11/21 05:19 Hct 32.9 % (35.5-45.6) L 11/11/21 05:19 MCV 81 fl (84-94) L 11/11/21 05:19 MCH 26 pg (28-32) L 11/11/21 05:19 MCHC 32 % (32-34) 11/11/21 05:19 RDW 16.0 % (13.2-15.2) H 11/11/21 05:19 Plt Count 138 K/mm3 (140-440) L 11/11/21 05:19 Lymph % (Auto) 34.6 % (13.4-35.0) 11/11/21 05:19 Wilkin % (Auto) 10.6 % (0.0-7.3) H 11/11/21 05:19 Eos % (Auto) 4.3 % (0.0-4.3) 11/11/21 05:19 Baso % (Auto) 0.4 % (0.0-1.8) 11/11/21 05:19 Lymph # (Auto) 2.1 K/mm3 (1.2-5.4) 11/11/21 05:19 Wilkin # (Auto) 0.6 K/mm3 (0.0-0.8) 11/11/21 05:19 Eos # (Auto) 0.3 K/mm3 (0.0-0.4) 11/11/21 05:19 Baso # (Auto) 0.0 K/mm3 (0.0-0.1) 11/11/21 05:19 Add Manual Diff Complete 11/02/21 05:35 Total Counted 100 11/02/21 05:35 Seg Neutrophils % 50.1 % (40.0-70.0) 11/11/21 05:19 Seg Neuts % (Manual) 66.0 % (40.0-70.0) 11/02/21 05:35 Band Neutrophils % 0 % 11/02/21 05:35 Lymphocytes % (Manual) 26.0 % (13.4-35.0) 11/02/21 05:35 Reactive Lymphs % (Man) 0 % 11/02/21 05:35 Monocytes % (Manual) 8.0 % (0.0-7.3) H 11/02/21 05:35 Eosinophils % (Manual) 0 % (0.0-4.3) 11/02/21 05:35 Basophils % (Manual) 0 % (0.0-1.8) 11/02/21 05:35 Metamyelocytes % 0 % 11/02/21 05:35 Myelocytes % 0 % 11/02/21 05:35 Promyelocytes % 0 % 11/02/21 05:35 Blast Cells % 0 % 11/02/21 05:35 Nucleated RBC % Not Reportable 11/02/21 05:35 Seg Neutrophils # 3.0 K/mm3 (1.8-7.7) 11/11/21 05:19 Seg Neutrophils # Man 3.8 K/mm3 (1.8-7.7) 11/02/21 05:35 Band Neutrophils # 0.0 K/mm3 11/02/21 05:35 Lymphocytes # (Manual) 1.5 K/mm3 (1.2-5.4) 11/02/21 05:35 Abs React Lymphs (Man) 0.0 K/mm3 11/02/21 05:35 Monocytes # (Manual) 0.5 K/mm3 (0.0-0.8) 11/02/21 05:35 Eosinophils # (Manual) 0.0 K/mm3 (0.0-0.4) 11/02/21 05:35 Basophils # (Manual) 0.0 K/mm3 (0.0-0.1) 11/02/21 05:35 Metamyelocytes # 0.0 K/mm3 11/02/21 05:35 Myelocytes # 0.0 K/mm3 11/02/21 05:35 Promyelocytes # 0.0 K/mm3 11/02/21 05:35 Blast Cells # 0.0 K/mm3 11/02/21 05:35 WBC Morphology Not Reportable 11/02/21 05:35 Hypersegmented Neuts Not Reportable 11/02/21 05:35 Hyposegmented Neuts Not Reportable 11/02/21 05:35 Hypogranular Neuts Not Reportable 11/02/21 05:35 Smudge Cells Not Reportable 11/02/21 05:35 Toxic Granulation Not Reportable 11/02/21 05:35 Toxic Vacuolation Not Reportable 11/02/21 05:35 Dohle Bodies Not Reportable 11/02/21 05:35 Pelger-Huet Anomaly Not Reportable 11/02/21 05:35 Jarvis Rods Not Reportable 11/02/21 05:35 Platelet Estimate Consistent w auto 11/02/21 05:35 Clumped Platelets Not Reportable 11/02/21 05:35 Plt Clumps, EDTA Not Reportable 11/02/21 05:35 Large Platelets Not Reportable 11/02/21 05:35 Giant Platelets Not Reportable 11/02/21 05:35 Platelet Satelliting Not Reportable 11/02/21 05:35 Plt Morphology Comment Not Reportable 11/02/21 05:35 RBC Morphology Normal 11/02/21 05:35 Dimorphic RBCs Not Reportable 11/02/21 05:35 Polychromasia Not Reportable 11/02/21 05:35 Hypochromasia Not Reportable 11/02/21 05:35 Poikilocytosis Not Reportable 11/02/21 05:35 Anisocytosis Not Reportable 11/02/21 05:35 Microcytosis Not Reportable 11/02/21 05:35 Macrocytosis Not Reportable 11/02/21 05:35 Spherocytes Not Reportable 11/02/21 05:35 Pappenheimer Bodies Not Reportable 11/02/21 05:35 Sickle Cells Not Reportable 11/02/21 05:35 Target Cells Not Reportable 11/02/21 05:35 Tear Drop Cells Not Reportable 11/02/21 05:35 Ovalocytes Not Reportable 11/02/21 05:35 Helmet Cells Not Reportable 11/02/21 05:35 [place] Bodies Not Reportable 11/02/21 05:35 [place] Rings Not Reportable 11/02/21 05:35 [place] Cells Not Reportable 11/02/21 05:35 Bite Cells Not Reportable 11/02/21 05:35 Crenated Cell Not Reportable 11/02/21 05:35 Elliptocytes Not Reportable 11/02/21 05:35 Acanthocytes (Spur) Not Reportable 11/02/21 05:35 Rouleaux Not Reportable 11/02/21 05:35 Hemoglobin C Crystals Not Reportable 11/02/21 05:35 Schistocytes Not Reportable 11/02/21 05:35 Malaria parasites Not Reportable 11/02/21 05:35 [place] Bodies Not Reportable 11/02/21 05:35 Hem Pathologist Commnt No 11/02/21 05:35 Sodium 140 mmol/L (137-145) 11/11/21 05:19 Potassium 4.5 mmol/L (3.6-5.0) 11/11/21 05:19 Chloride 106.3 mmol/L (98-107) 11/11/21 05:19 Carbon Dioxide 25 mmol/L (22-30) 11/11/21 05:19 Anion Gap 13 mmol/L 11/11/21 05:19 BUN 31 mg/dL (9-20) H 11/11/21 05:19 Creatinine 1.9 mg/dL (0.8-1.3) H 11/11/21 05:19 Estimated GFR 44 ml/min 11/11/21 05:19 BUN/Creatinine Ratio 16 % 11/11/21 05:19 Glucose 124 mg/dL (75-100) H 11/11/21 05:19 POC Glucose 115 mg/dL (70-105) H 11/11/21 07:30 Hemoglobin A1c 8.7 % (4-6) H 10/31/21 05:15 Ketones Quantitative Cancelled 10/30/21 10:54 Ketones Quantitative Small (Negative) 10/30/21 10:54 Lactic Acid 1.10 mmol/L (0.7-2.0) 10/30/21 10:54 Calcium 8.9 mg/dL (8.4-10.2) 11/11/21 05:19 Phosphorus 3.50 mg/dL (2.5-4.5) 11/06/21 14:20 Magnesium 2.10 mg/dL (1.7-2.3) 10/30/21 10:54 Total Bilirubin 0.20 mg/dL (0.1-1.2) 11/02/21 05:35 AST 23 units/L (5-40) 11/02/21 05:35 ALT 22 units/L (7-56) 11/02/21 05:35 Alkaline Phosphatase 86 units/L (35-129) 11/02/21 05:35 Troponin T 0.049 ng/mL (0.00-0.029) H 10/30/21 13:37 Total Protein 5.3 g/dL (6.3-8.2) L 11/02/21 05:35 Albumin 2.7 g/dL (3.9-5) L 11/02/21 05:35 Albumin/Globulin Ratio 1.0 % 11/02/21 05:35 Triglycerides 173 mg/dL (2-149) H 10/30/21 10:54 Cholesterol 189 mg/dL (50-199) 10/30/21 10:54 LDL Cholesterol Direct 110 mg/dL (50-130) 10/30/21 10:54 HDL Cholesterol 59 mg/dL (40-59) 10/30/21 10:54 Cholesterol/HDL Ratio 3.20 % 10/30/21 10:54 Lipase 21 units/L (13-60) 10/30/21 10:54 PTH Intact 78.77 pg/mL (15-65) H 11/05/21 06:03 Urine Color Straw (Yellow) 10/30/21 11:45 Urine Turbidity Clear (Clear) 10/30/21 11:45 Specific Jackson (Man) 1.010 (1.003-1.030) 10/30/21 11:45 Ur Protein (Man) 3+ mg/dL (Negative) 10/30/21 11:45 Ur Ketones (Man) 5 (Negative) 10/30/21 11:45 Ur Reducing Substances Not Reportable 10/30/21 11:45 Urine Bilirubin (Man) Negative (Negative) 10/30/21 11:45 Urine WBC (Auto) 2.0 /HPF (0.0-6.0) 10/30/21 11:45 Urine RBC (Auto) 2.0 /HPF (0.0-6.0) 10/30/21 11:45 U Epithel Cells (Auto) < 1.0 /HPF (0-13.0) 10/30/21 11:45 Urine RBC (Manual) 1+ (Negative) 10/30/21 11:45 Urine Creatinine 91.8 mg/dL (0.1-20.0) H 11/05/21 23:45 Protein/Creatinin Ratio 3.51 11/05/21 23:45 Urine Sodium 40 mmol/L 11/05/21 23:45 Urine Total Protein 322 mg/dL (5-11.8) H 11/05/21 23:45 Dobson/IV: Voiding Method Urinal Active Medications - Current Medications Current Medications: Generic Name Dose Route Start Last Admin Trade Name Freq PRN Reason Stop Dose Admin Acetaminophen 650 mg 10/30/21 17:06 11/01/21 22:21 Acetaminophen 325 Mg Tab PO 650 mg Q4H PRN Administration Pain MILD(1-3)/Fever >100.5/WILLS Aspirin 81 mg 11/04/21 10:00 11/11/21 09:17 Aspirin 81 Mg Tab Chew PO 81 mg QDAY LOLY Administration Famotidine 20 mg 11/04/21 11:00 11/11/21 09:17 Famotidine 20 Mg Tab PO 20 mg DAILY LOLY Administration Gabapentin 300 mg 11/03/21 22:00 11/11/21 09:17 Gabapentin 300 Mg Cap PO 300 mg BID LOLY Administration Heparin Sodium (Porcine) 5,000 unit 10/30/21 22:00 11/11/21 09:18 Heparin 5,000 Unit/1 Ml Vial SUB-Q 5,000 unit Q12HR LOLY Administration Hydralazine HCl 10 mg 10/31/21 00:19 11/06/21 06:48 Hydralazine 20 Mg/1 Ml Inj IV 10 mg Q6HR PRN Administration SBP greater than 160 Sodium Chloride 1,000 mls @ 75 mls/hr 11/04/21 06:15 11/06/21 16:36 Nacl 0.9% 1000 Ml IV 75 mls/hr DIRECT LOLY Administration Insulin Glargine 15 units 11/04/21 10:00 11/11/21 09:18 Insulin Glargine 100 Units/Ml SUB-Q 15 units DAILY LOLY Administration Insulin Human Lispro 0 unit 11/06/21 22:00 11/11/21 11:44 Insulin Lispro 100 Unit/Ml SUB-Q 3 unit ACHS LOLY Administration Protocol Labetalol HCl 200 mg 11/03/21 22:00 11/11/21 09:17 Labetalol 200 Mg Tab PO 200 mg BID LOLY Administration Metoclopramide HCl 5 mg 11/04/21 11:00 Metoclopramide 10 Mg/2 Ml Inj IV Q6H PRN Nausea And Vomiting Morphine Sulfate 2 mg 10/30/21 17:06 Morphine 2 Mg/1 Ml Inj IV Q4H PRN Pain, Moderate (4-6) Ondansetron HCl 4 mg 10/30/21 17:06 Ondansetron 4 Mg/2 Ml Inj IV Q8H PRN Nausea And Vomiting Oxycodone/Acetaminophen 1 tab 10/30/21 17:06 11/10/21 09:42 Oxycodone /Acetaminophen 5-325mg Tab PO 1 tab Q6H PRN Administration Pain, Moderate (4-6) Sodium Chloride 10 ml 10/30/21 22:00 11/11/21 09:17 Sodium Chloride 0.9% 10 Ml Flush Syringe IV 10 ml BID LOLY Administration Sodium Chloride 10 ml 10/30/21 17:06 Sodium Chloride 0.9% 10 Ml Flush Syringe IV PRN PRN LINE FLUSH Timolol Maleate 1 drops 11/03/21 22:00 11/11/21 09:27 Timolol 0.5% Ophth Soln 5 Ml OU 1 drops BID OLLY Administration Nutrition/Malnutrition Assess - Dietary Evaluation Nutrition/Malnutrition Findings: Nutrition Notes Start: 11/07/21 13:56 Freq: Status: Active Protocol: Document 11/07/21 13:56 LUCIANA (Rec: 11/07/21 13:58 [facility] [id number]) Nutrition Notes Need for Assessment generated from: LOS Initial or Follow up Brief Note Current Diet Cardiac/Consistent CHO Height 5 ft 7 in Weight 79.7 kg [place] Body Weight (kg) 67.27 BMI 27.5 Weight Status Overweight Subjective/Other Information Pt screened for LOS. He has consumed 88% of meals since admission. Percent of energy/protein needs met: 86% energy 95% pro Burn Absent Trauma Absent Current % PO Good (75-100%) Minimum of two criteria No Is patient on ventilator? No Is Patient Ambulatory and/or Out of Bed Yes REE-([place]-Julián Miltonnv-ambulatory/OOB) [ 2021.319 [id number]] Calculation Used for Recommendations [facility] Additional Notes Pro needs 1-1.2g/k-96g/ day Fluid needs 1ml/kcal Nutrition Intervention Revisit per MD consult or patient Sign Off request:
--- NOTE | 2021-11-11 17:28 | Event Note ---
Date: 11/12/21 Please refer to the discharge summary written by Dr. Goddard on 11/05/2021.
[2021-11-12] MEDS: INSULIN LISPRO 100 UNIT/ML SUB-Q SCH ×4 (08:08→21:26)
[2021-11-12] MEDS: INSULIN GLARGINE 100 UNITS/ML SUB-Q SCH (09:14)
[2021-11-12] MEDS: FAMOTIDINE 20 MG TAB PO SCH (09:14)
[2021-11-12] MEDS: ASPIRIN 81 MG TAB CHEW PO SCH (09:14)
[2021-11-12] MEDS: HEPARIN 5,000 UNIT/1 ML VIAL SUB-Q SCH ×2 (09:14→21:27)
[2021-11-12] MEDS: GABAPENTIN 300 MG CAP PO SCH ×2 (09:14→21:22)
[2021-11-12] MEDS: TIMOLOL 0.5% OPHTH SOLN 5 ML OU SCH ×2 (09:17→21:29)
[2021-11-13] MEDS: hydrALAZINE 20 MG/1 ML INJ IV PRN (06:10)
[2021-11-13] MEDS: INSULIN LISPRO 100 UNIT/ML SUB-Q SCH (08:14)
[2021-11-13] MEDS: INSULIN GLARGINE 100 UNITS/ML SUB-Q SCH (10:27)
[2021-11-13] MEDS: GABAPENTIN 300 MG CAP PO SCH (10:28)
[2021-11-13] MEDS: FAMOTIDINE 20 MG TAB PO SCH (10:28)
[2021-11-13] MEDS: ASPIRIN 81 MG TAB CHEW PO SCH (10:28)
[2021-11-13] MEDS: HEPARIN 5,000 UNIT/1 ML VIAL SUB-Q SCH (10:28)
[2021-11-13] MEDS: TIMOLOL 0.5% OPHTH SOLN 5 ML OU SCH (10:28)
[2021-11-13 12:22] VITALS: BP 150/78
== END 2021-11-13 12:34 | disposition home or self-care (01) | DRG 637 ==
LOC: ED 07:14 → 3A 17:06
PROVIDERS: ADMIT Internal Medicine; ATTEND Student in an Organized Health Care Education/Training Program
DX: E11.00 Type 2 diabetes mellitus with hyperosmolarity without nonketotic hyperglycemic-hyperosmolar coma (NKHHC) (principal); N17.0 Acute kidney failure with tubular necrosis; E44.0 Moderate protein-calorie malnutrition; R77.8 Other specified abnormalities of plasma proteins; I12.9 Hypertensive chronic kidney disease with stage 1 through stage 4 chronic kidney disease, or unspecified chronic kidney disease; E11.22 Type 2 diabetes mellitus with diabetic chronic kidney disease; N18.9 Chronic kidney disease, unspecified; Z59.00 Homelessness unspecified; E11.40 Type 2 diabetes mellitus with diabetic neuropathy, unspecified; Z79.82 Long term (current) use of aspirin; D50.9 Iron deficiency anemia, unspecified; Z79.4 Long term (current) use of insulin; H54.8 Legal blindness, as defined in USA; Z82.49 Family history of ischemic heart disease and other diseases of the circulatory system; Z68.27 Body mass index [BMI] 27.0-27.9, adult
CPT/HCPCS: 36415; 71045; 76770; 80048; 80053; 80061; 81001; 82010; 82140; 82570; 82962; 83036; 83690; 83735; 83970; 84100; 84156; 84300; 84484; 85007; 85025; 85027; 87040; 99285; G0378; J3490; Q9967; J0360; J1644; J1815; J7030